=== PATIENT | male | born 1985 | race Caucasian/White ===

== ENCOUNTER 2020-11-06 07:42 | Outpatient (REF) | payer OTHER, SELFPAY ==
[2020-11-06 08:30] LABS: COVID-19 Test Negative (Negative)
== END 2020-11-06 07:43 | disposition home or self-care (01) ==
LOC: HO.LAB 07:42
PROVIDERS: Visit Provider Internal Medicine
DX: Z20.822 Contact with and (suspected) exposure to COVID-19 (principal)
CPT/HCPCS: 36415; 87635; C9803

== ENCOUNTER 2021-02-09 08:27 | Outpatient (REF) | payer OTHER, SELFPAY ==
[2021-02-09 10:53] LABS: Carbamazepine Tegretol 5.7 mcg/mL (5.0-12.0)
== END 2021-02-09 08:28 | disposition home or self-care (01) ==
LOC: HO.LAB 08:27
PROVIDERS: PCP Internal Medicine; Visit Provider General Practice
DX: F84.0 Autistic disorder (principal); Z79.899 Other long term (current) drug therapy
CPT/HCPCS: 36415; 80156

== ENCOUNTER 2022-08-16 08:01 | Outpatient (REF) | payer OTHER, SELFPAY ==
[2022-08-16 08:26] LABS: MANUAL DIFF FLAG NO
[2022-08-16 08:33] LABS: Basophils Percent Auto 0.3 % (0-2); Eosinophils Percent Auto 0.5 % (0-4); Hematocrit 44.4 % (42.0-52.0); Hemoglobin 14.7 g/dl (14.0-18.0); Imm Gran Abs Auto 0.02 X10*3/uL (0.00-0.03); Imm Gran Pct Auto 0.3 % (0.0-0.4); Lymphocytes Absolute Auto 1.7 X10*3/uL (1.2-4.9); Lymphocytes Percent Auto 23.5 % (20-40); Mean Corpuscular HGB Conc 33.1 g/dl (31.0-36.0); Mean Corpuscular Hemoglobin 27.9 pg (27.0-33.0); Mean Corpuscular Volume 84.3 fL (80.0-98.0); Mean Platelet Volume 9.2 fL (9.4-12.4); Monocytes Absolute Auto 0.3 X10*3/uL (0.1-1.2); Monocytes Percent Auto 4.6 % (2-11); Neutrophils Absolute Auto 5.3 x10*3/uL (2.0-8.3); Neutrophils Percent Auto 70.8 % (45-73); Platelet Count 323 X10*3/uL (160-400); Red Blood Count 5.27 X10*6/uL (4.60-5.80); Red Cell Distribution Width 12.5 % (11.0-16.0); White Blood Count 7.4 X10*3/uL (4.8-10.8)
[2022-08-16 09:06] LABS: Carbamazepine Tegretol 8.5 mcg/mL (5.0-12.0)
== END 2022-08-16 08:02 | disposition home or self-care (01) ==
LOC: HO.LAB 08:01
PROVIDERS: PCP Internal Medicine; Visit Provider General Practice
DX: Z79.899 Other long term (current) drug therapy (principal)
CPT/HCPCS: 36415; 80156; 85025

== ENCOUNTER 2022-09-01 16:01 | Outpatient (REF) | payer OTHER, SELFPAY ==
--- NOTE | ~2022-09-01 | XR_ITS ---
EXAMINATION: XR ABDOMEN COMPLETE CLINICAL INDICATION: Abdominal pain COMPARISON: Abdominal radiographs 10/13/2019 TECHNIQUE: AP view of the abdomen. FINDINGS: Bowel gas seen throughout nondilated loops of small bowel in the abdomen in addition to a small amount of gas in stool in the colon. Small amount of gas also seen in the rectum. No dilated air-filled bowel loops. No appreciable bowel wall thickening. No gross large volume free air on this supine exam. Visualized lung bases appear clear. Thoracolumbar posterior spinal fusion construct with biiliac fixation noted. 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 XR/XR abdomen min 2V IMPRESSION: 1. Nonobstructive bowel gas pattern. 2. No gross large volume free air detected on this supine exam.
[2022-09-01 16:20] LABS: MANUAL DIFF FLAG NO
[2022-09-01 17:34] LABS: Basophils Percent Auto 0.5 % (0-2); Eosinophils Absolute Auto 0.1 X10*3/uL (0.0-0.4); Eosinophils Percent Auto 1.3 % (0-4); Hematocrit 42.3 % (42.0-52.0); Hemoglobin 14.2 g/dl (14.0-18.0); Imm Gran Abs Auto 0.01 X10*3/uL (0.00-0.03); Imm Gran Pct Auto 0.2 % (0.0-0.4); Lymphocytes Absolute Auto 1.7 X10*3/uL (1.2-4.9); Lymphocytes Percent Auto 28.2 % (20-40); Mean Corpuscular HGB Conc 33.6 g/dl (31.0-36.0); Mean Corpuscular Hemoglobin 28.1 pg (27.0-33.0); Mean Corpuscular Volume 83.8 fL (80.0-98.0); Mean Platelet Volume 9.6 fL (9.4-12.4); Monocytes Absolute Auto 0.5 X10*3/uL (0.1-1.2); Monocytes Percent Auto 7.8 % (2-11); Neutrophils Absolute Auto 3.7 x10*3/uL (2.0-8.3); Platelet Count 332 X10*3/uL (160-400); Red Blood Count 5.05 X10*6/uL (4.60-5.80); Red Cell Distribution Width 12.6 % (11.0-16.0)
[2022-09-01 17:49] LABS: Carbamazepine Tegretol 6.7 mcg/mL (5.0-12.0)
[2022-09-01 17:54] LABS: Alanine Aminotransferase 25 U/L (0-40); Albumin Level 4.2 g/dL (3.5-5.0); Alkaline Phosphatase 53 U/L (39-117); Anion Gap 9 (12-20); Aspartate Amino Transferase 6 U/L (5-37); Bilirubin Total 0.3 mg/dL (0.0-1.0); Blood Urea Nitrogen 7 mg/dL (9-16); Calcium 9.2 mg/dL (8.4-10.2); Carbon Dioxide 30 mmol/L (22-29); Chloride 101 mmol/L (96-108); Cholesterol 134 mg/dL; Estimated Glomerular Filt Rate > 60; Glucose Random 94 mg/dL (60-115); Sodium 136 mmol/L (135-145); Total Protein 6.6 g/dL (6.5-8.0)
[2022-09-01 18:11] LABS: TSH reflex Free T4 0.62 uIU/mL (0.32-4.0); Vitamin D 25-OH Total 14.7 ng/mL (>30)
[2022-09-01 18:25] LABS: Erythrocyte Sedimentation Rate 2 MM/HR (0-15)
== END 2022-09-01 16:02 | disposition home or self-care (01) ==
LOC: HO.LAB 16:01
PROVIDERS: PCP Internal Medicine; Visit Provider Internal Medicine
DX: Z00.00 Encounter for general adult medical examination without abnormal findings (principal); R10.9 Unspecified abdominal pain; E55.9 Vitamin D deficiency, unspecified
CPT/HCPCS: 36415; 74019; 80053; 80156; 82306; 82465; 84443; 85025; 85652

== ENCOUNTER 2022-12-03 13:53 | Outpatient (REF) | payer OTHER, SELFPAY | END 2022-12-03 13:54 | disposition home or self-care (01) | LOC: HO.LNP 13:53 | PROVIDERS: PCP Internal Medicine; Referring Provider Internal Medicine; Visit Provider Surgery | DX: N49.2 Inflammatory disorders of scrotum (principal) | CPT/HCPCS: 10061; 55100; 87070; 87077; 87186; 87205; 99202 ==

== ENCOUNTER → 2022-12-05 13:30 | Outpatient (BNVA) | payer OTHER, SELFPAY | PROVIDERS: PCP Internal Medicine; Visit Provider Surgery | DX: Z48.00 Encounter for change or removal of nonsurgical wound dressing (principal); N49.2 Inflammatory disorders of scrotum | CPT/HCPCS: 99211 ==

== ENCOUNTER → 2022-12-09 10:59 | Outpatient (BNVA) | payer OTHER, SELFPAY | PROVIDERS: PCP Internal Medicine; Visit Provider Surgery | DX: Z09 Encounter for follow-up examination after completed treatment for conditions other than malignant neoplasm (principal); Z87.2 Personal history of diseases of the skin and subcutaneous tissue | CPT/HCPCS: 99212 ==

== ENCOUNTER 2023-02-17 08:50 | Outpatient (AMB) | payer OTHER, SELFPAY ==
--- NOTE | 2023-02-17 09:31 | MHC.OFFWIV ---
Intake Vital Signs 02/17/23 09:35 BP not taken reason Medical Reason Pulse 94 Pulse Source Pulse Oximeter Temp 97.3 F Temp Source Temporal Artery Scan Pulse Oximetry (%) 100 Oxygen Delivery Method Room Air Intake Visit Reasons: EST/2 cyst on leg/[id number] Intake Note: Pt is here c/o having 2 golf ball size cyst on his but. Patient Tobacco Use Status: Never used Tobacco Allergies No Known Allergies [No Known Allergies*] Allergy (Verified 02/17/23 09:31) Do you need a note to return to daycare/school/sports/work: No HPI HPI Comments History of Present Illness Details Parents present with 37-year-old son, has cerebral palsy and severe academic impairment and his wheel chair bound, nonverbal, presents for cyst on his coccyx, and on his leg. [facility] Medical History Allergic rhinitis Bipolar disorder Constipation Gallstones without obstruction of gallbladder Schizophrenia Spastic quadriplegic cerebral palsy Spina bifida Surgical History No pertinent past surgical history Family History Father High blood pressure Mother No problems noted. Social History Housing: House Alcohol intake: never Patient Tobacco Use Status: Never used Tobacco Second Hand Smoke Exposure: No service: No Current occupational status: disabled Review of Systems Const Details: Constitutional: No Fever, No Chills Skin: Cyst on coccyx and legs No Skin lacerations, No rash All systems reviewed & are unremarkable except as noted in HPI and below Physical Exam Vital Signs: Last Vital Signs Temp 97.3 F 02/17/23 09:35 Pulse 94 02/17/23 09:35 Pulse Ox 100 02/17/23 09:35 Oxygen Delivery Method Room Air 02/17/23 09:35 Appearance: Alert. No acute distress. Eyes: Pupils equal, round and reactive to light. ENT: Pharynx normal. Neck: Normal inspection. Neck supple. CVS: Normal heart rate and rhythm. Pulses normal. Respiratory: No respiratory distress. Breath sounds normal. Abdomen: Soft and nontender. Skin: Skin warm and dry. Normal skin color. Normal skin turgor. Extremities: Contractured. Brisk capillary refill. Neuro: No motor deficit. No sensory deficit. Unable to assess cranial nerves, cerebral palsy with severe academic impairment Assessment & Plan Assessment & Plan (1) Cyst near coccyx: Code(s): L05.91 - Pilonidal cyst without abscess Plan Parents present with 37-year-old son, wheelchair-bound, cerebral palsy with severe academic impairment in nonverbal. Patient is unable to make his needs known. He does have a history of scrotal cyst and was evaluated on 12/09/2022 by this facility then referred to surgeon Dr. Cowan. Patient's parents state that he has an abscess or cyst like spot on his coccyx and on his leg. Considering the difficulty and inaccessibility of the exam table, we are unable to assess this cyst. Call out to Dr. Rock rojo office, plan is for patient to follow up in the surgeon's office at 01:30 today. Parents verbalized understanding of discharge instructions. Verbalized understandings of signs and symptoms indicating need for emergent intervention. Patient Instructions: Your son was evaluated for multiple cysts. Please follow-up with the surgeon, Dr. Cowan at 13:30 today. Thank you for choosing this urgent care for evaluation. Please follow-up with primary care physician as needed. Return to the emergency department for any new, concerning, or worsening symptoms. Coding Level of Care Code Est Pt Level 3 (64653) Diagnoses Cyst near coccyx L05.91
[2023-02-17 09:35] VITALS: PULSE 94; TEMP 36.3; O2SAT 100
== END 2023-02-17 11:36 | disposition home or self-care (01) ==
PROVIDERS: PCP Internal Medicine; Visit Provider Nurse Practitioner Family
DX: L05.91 Pilonidal cyst without abscess (principal)
CPT/HCPCS: 99213

== ENCOUNTER 2023-02-17 13:17 | Outpatient (REF) | payer OTHER, SELFPAY | END 2023-02-17 13:18 | disposition home or self-care (01) | LOC: HO.LAB 13:17 | PROVIDERS: PCP Internal Medicine; Visit Provider Surgery | DX: L02.91 Cutaneous abscess, unspecified (principal); L05.91 Pilonidal cyst without abscess; Z79.899 Other long term (current) drug therapy | CPT/HCPCS: 10061; 87070; 87077; 87186; 87205; 99212 ==

== ENCOUNTER 2023-02-17 13:17 | Outpatient (AMB) | payer OTHER, SELFPAY ==
[2023-02-17 13:23] VITALS: BP 120/80
--- NOTE | 2023-02-17 13:23 | A.OFFVIS_ITS ---
Intake Vital Signs 02/17/23 13:23 Weight 126 lb BP 120/80 Blood Pressure Location Lt brachial Position Sitting Intake Visit Reasons: possible exc of abscess of back & leg Intake Note: Patient here with parents. Mom reports 2 new cysts. Lt buttock is bigger. Gets irritated with diaper and bled this morning. Threre is one cyst on Lt post thigh. Both cysts recently noticed by parents. 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 Accompanied by: mother and father Allergies No Known Allergies [No Known Allergies*] Allergy (Verified 02/17/23 13:25) Medication List - Last Reconciled 02/17/23 by Cortez Cowan MD [ADULT DIAPERS (XL) As directed] carbamazepine 200 mg PO BID [DISPOSABLE VINYL GLOVES (medium) As directed] ibuprofen 800 mg PO BID PRN 30 days miscellaneous medical supply Adult Diapers- size: X-Large polyethylene glycol 3350 17 grams PO DAILY 90 days quetiapine 25 mg PO BEDTIME [UNDERPADS As directed] ziprasidone HCl 80 mg PO BID HPI HPI Comments History of Present Illness Details Patient whom I know from the past who presents here with his parents with a left mid buttock and left proximal thigh abscesses. These have progressed over several days time. Patient well known to me. Unfortunate handicapped male Chart was reviewed and patient evaluated [facility] Medical History Allergic rhinitis Bipolar disorder Constipation Gallstones without obstruction of gallbladder Schizophrenia Spastic quadriplegic cerebral palsy Spina bifida Surgical History No pertinent past surgical history Family History Father High blood pressure Mother No problems noted. Social History Housing: House Alcohol intake: never Patient Tobacco Use Status: Never used Tobacco Second Hand Smoke Exposure: No service: No Current occupational status: disabled Physical Exam Vital Signs: Last Vital Signs BP 120/80 02/17/23 13:23 Extrem Other: Approximately 4 x 4 cm left mid buttock and approximately 2 x 2 cm left proximal thigh abscesses. Office Procedures I&D Drain Details: Risks, benefits, alternatives of incision and drainage of buttock and upper posterior thigh abscess respectively were reviewed with the patient's parents and included but not limited to bleeding recurrence numbness, pain scarring and wished to proceed. After appropriate positioning, patient underwent 1% lidocaine and Betadine prep and uneventful incision and drainage of each abscess. Cultures were obtained from the larger buttock abscess. This measured 4 x 4 cm. Proximal posterior thigh abscess measured approximately 2 x 2 cm. Purulent material was retrieved from each abscess.. Each wound was irrigated, secured hemostasis, packed, and sterile dressings applied.. Patient tolerated procedure well. 33496-Phhzocym of Skin Abscess, complex All charges added?: Procedure code (CPT) selection complete Assessment & Plan Assessment & Plan (1) Abscess: Code(s): L02.91 - Cutaneous abscess, unspecified Orders: Orders AMB Incision & Drainage Today L02.91 - Cutaneous abscess, unspecified Medications: New sulfamethoxazole-trimethoprim 400-80 mg (Bactrim) 1 tab PO BID 14 tabs 0RF hydrocodone-acetaminophen 5-325 mg Partial Fill upon patient request. 1 tab PO Q4-6H PRN 30 tabs 0RF pain Coding Level of Care Code Est Pt Level 4 (17033) Diagnoses Abscess L02.91 CPT Codes I&D Drain - Drain 2: [id number]-[id number] of Skin Abscess, complex ([id number])
== END 2023-02-17 14:04 | disposition home or self-care (01) ==
PROVIDERS: PCP Internal Medicine; Visit Provider Surgery
DX: L02.91 Cutaneous abscess, unspecified (principal)
CPT/HCPCS: 10061; 99214

== ENCOUNTER → 2023-02-18 13:34 | Outpatient (BNVA) | payer OTHER, SELFPAY | PROVIDERS: PCP Internal Medicine; Visit Provider Surgery | DX: Z48.1 Encounter for planned postprocedural wound closure (principal); Z87.2 Personal history of diseases of the skin and subcutaneous tissue | CPT/HCPCS: 99211 ==

== ENCOUNTER 2023-03-02 07:34 | Outpatient (REF) | payer OTHER, SELFPAY | END 2023-03-02 07:35 | disposition home or self-care (01) | LOC: HO.LAB 07:34 | PROVIDERS: PCP Internal Medicine; Visit Provider Internal Medicine | DX: Z13.89 Encounter for screening for other disorder (principal) ==

== ENCOUNTER 2023-03-04 08:44 | Outpatient (AMB) | payer OTHER, SELFPAY ==
[2023-03-04 09:17] VITALS: BP 120/78; PULSE 67; O2SAT 99
--- NOTE | 2023-03-04 09:17 | A.OFFPC_ITS ---
Vital Signs 03/04/23 09:17 Weight 126 lb BP 120/78 Blood Pressure Location Lt brachial Position Sitting Pulse 67 Pulse Source Pulse Oximeter Pulse Oximetry (%) 99 Oxygen Delivery Method Room Air Intake Visit Reasons: Follow up Hoop Rolls Operator Required: No Accompanied by: Self / Same As Patient Allergies No Known Allergies [No Known Allergies*] Allergy (Verified 03/04/23 10:13) Medication List - Last Reconciled 03/04/23 by Scot Mosley MD [ADULT DIAPERS (XL) As directed] carbamazepine 200 mg PO BID [DISPOSABLE VINYL GLOVES (medium) As directed] hydrocodone-acetaminophen 5-325 mg 1 tab PO Q4-6H PRN ibuprofen 800 mg PO BID PRN 30 days miscellaneous medical supply Adult Diapers- size: X-Large polyethylene glycol 3350 17 grams PO DAILY 90 days quetiapine 25 mg PO BEDTIME sulfamethoxazole-trimethoprim 400-80 mg (Bactrim) 1 tab PO BID 7 days [UNDERPADS As directed] ziprasidone HCl 80 mg PO BID Tobacco use date assessed: 03/04/23 Dental Screening Dental Screen Date: 03/04/23 Did you have a dental visit in the last 12 months?: Yes Did you have a dental problem in the last 6 months where you did not have access to dental care?: No Was dental information given to patient?: Patient has dentist HPI Follow up HPI Details Patient is brought in today for his follow up visit Was seen by surgery a couple of weeks ago and had I & D done on the 2 skin abscess that he had on his left buttock area and left thigh posteriorly He was sent home with Rx for oral Bactrim DS BID x 7 days, which his father states that he finished last week Patient was reportedly being seen by [facility] for wound care and dressing change but his father states that the visiting nurses came by about 3 times and stopped coming over a week ago and his daughter (patient's sister) is the one now cleaning and dressing his wounds - his father does not know what his daughter is using to dress patient's wounds and will have her call us back with the information as soon as possible Patient's father states that patient's wounds (where the abscess were and I & D was done) are still open and have not yet healed/closed up completely States that there is still some minimal drainage from the wounds and has noticed that the drainage sometimes smell bad Wound C & S done (when patient had I & D) came out positive for MRSA that was sensitive to Bactrim Family states that patient has not had any fever or any other acute issues and is doing well overall [facility] Medical History Allergic rhinitis Bipolar disorder Constipation Gallstones without obstruction of gallbladder Schizophrenia Spastic quadriplegic cerebral palsy Spina bifida Surgical History No pertinent past surgical history Family History Father High blood pressure Mother No problems noted. Social History Housing: House Alcohol intake: never Patient Tobacco Use Status: Never used Tobacco Second Hand Smoke Exposure: No service: No Current occupational status: disabled Questionnaire PHQ-9 Over the last 2 weeks, how often have you been bothered by any of the following problems? 1. Little interest or pleasure in doing things: not at all 2. Feeling down, depressed, or hopeless: not at all 3. Trouble falling or staying asleep, or sleeping too much: not at all 4. Feeling tired or having little energy: not at all 5. Poor appetite or overeating: not at all 6. Feeling bad about yourself - or that you are a failure or have let yourself or your family down: not at all 7. Trouble concentrating on things, such as reading the newspaper or watching television: not at all 8. Moving or speaking so slowly that other people could have noticed. Or the opposite - being so fidgety or restless that you have been moving around a lot more than usual: not at all 9. Thoughts that you would be better off or of hurting yourself in some way: not at all Total score: 0 Depression Screening Interpretation: Negative 18562 - PHQ-9 Billing: Yes Source: Developed by Drs. Bienvenido Donald, Paris Figueredo, Mauro Valera and colleagues, with an educational pedro luis from [employer]. Thrive Questionnaire Date Thrive assessed: 03/04/23 I am a: Parent/Caregiver What is your living situation today?: I have a steady place to live Within the past 12 months, did the food you bought not last and you didn't have the money to get more?: Never true Within the past 12 months, did you worry whether your food would run out before you got money to buy more?: Never true Do you have trouble paying for medicines?: No Do you have trouble getting transportation to medical appointments?: No Do you have trouble paying your heating and electricity bill?: No Do you have trouble taking care of your child, family member or friend?: No Do you have trouble with day-to-day activities such as bathing, preparing meals, shopping, managing finances, etc.?: No Are you currently unemployed and looking for a job?: No Are you interested in more education?: No Please select the resources that you would like help with: None Currently or been in a relationship where the following occur: no concerns reported AUDIT C Alcohol Use Questionnaire (AUDIT-C) 1. How often do you have a drink containing alcohol?: Never 3. How often do you have six or more drinks on one occasion?: Never Total Score: 0 Score Reviewed/Action Taken: Yes JALEESA-7 AMB Questionnaire JALEESA-7 Date JALEESA - 7 assessed: 03/04/23 Feeling nervous, anxious, or on edge: 0 = Not at all Not being able to stop or control worryin = Not at all Worrying too much about different things: 0 = Not at all Trouble relaxin = Not at all Being so restless that it is hard to sit still: 0 = Not at all Becoming easily annoyed or irritable: 0 = Not at all Feeling afraid as if something awful might happen: 0 = Not at all Total JALEESA-7 score (0-4 normal; 5-9 mild; 10-14 moderate; 15-21 severe): 0 Source: Developed by Drs. Bienvenido Donald, Paris Figueredo, Mauro Valera and colleagues, with an educational pedro luis from [employer]. Review of Systems Const Details: ROS is limited and obtained primarily from patient's family as patient is not able to verbalize or communicate appropriately due to his physical incapacities Denies chills, Denies fever(s) and Denies headache(s) ENT Denies dysphagia, Denies headache(s) and Denies nasal congestion Card Denies rapid heart rate, Denies irregular heart rhythm, Denies palpitations and Denies dyspnea Resp Denies chest congestion, Denies cough and Denies dyspnea GI Denies abdominal pain, Denies dysphagia, Denies diarrhea, Denies nausea and Denies vomiting Musc Denies arthralgias and Denies joint swelling Skin/Breast Details: (+) open wounds on the left buttock and over the posterior left thigh proximally Denies rash and Denies unusual bruising Neuro Denies headache(s) Endo Denies palpitations Physical exam (Primary Care) Vital Signs: Last Vital Signs Pulse 67 03/04/23 09:17 BP 120/78 03/04/23 09:17 Pulse Ox 99 03/04/23 09:17 Oxygen Delivery Method Room Air 03/04/23 09:17 Tobacco/Smoking Status: Tobacco use Status Tobacco use date assessed 03/04/23 03/04/23 09:24 Patient Tobacco Use Status Never used Tobacco 03/04/23 09:24 PHQ-9: PHQ-9 Score PHQ-9: Total score 0 03/04/23 09:24 Depression Screening Interpretation: Negative Thrive Assessment: Date of Thrive Assessment Date Thrive assessed 03/04/23 03/04/23 09:24 Currently or been in a relationship where the following occur: no concerns reported Const Other: Physical exam is limited due to patient's wheelchair-bound status, physical disabilities and inability to cooperate with exam General: no acute distress and alert Limitations: wheelchair Neck Neck: Yes no lymphadenopathy and Yes supple Resp Auscultation: clear to auscultation bilaterally Cardio Rate: regular rate Rhythm: regular rhythm Heart sounds: no murmurs GI Palpation (GI): Soft to palpation and no guarding Skin Other: (+) 2 open wounds - on the left buttock and over the posterior left thigh proximally; (+) minimal serosanguinous drainage noted Neuro Other: (+) spastic paraplegia; unable to perform neuro exam due to patient's condition but he does respond in a limited way to external stimuli Speech: Global aphasia present Extrem Other: extremities are all contracted and atrophic due to his spastic cerebral palsy and quadriplegia General: Yes no pedal edema Psych Other: unable to assess Assessment and Plan Assessment & Plan (1) Cutaneous abscess: Code(s): L02.91 - Cutaneous abscess, unspecified Plan: Still has 2 residual open wounds over the left buttock area and over the posterior aspect of the proximal left thigh S/P I & D by surgery about 2 to 3 weeks ago and S/P Tx with 7 days of oral Bactrim DS Wound C/S grew (+) MRSA sensitive to Bactrim Will start patient back for now on oral Bactrim DS BID x 7 more days Have instructed patient's family to continue with daily wound care and dressing changes for now and to call if patient's wounds still do not heal and close up completely over the next 2 to 3 weeks Plan To return as scheduled in August 2023 for his annual physical examination Medications: Changed From sulfamethoxazole-trimethoprim 400-80 mg (Bactrim) 1 tab PO BID 14 tabs 0RF To sulfamethoxazole-trimethoprim 400-80 mg (Bactrim) go back on antibiotics (Bactrim DS) x 7 MORE DAYS 1 tab PO BID 7 days 14 tabs 0RF Coding Level of Care Code Est Pt Level 3 (98672) Diagnoses Cutaneous abscess L02.91
== END 2023-03-04 10:04 | disposition home or self-care (01) ==
PROVIDERS: PCP Internal Medicine; Visit Provider Internal Medicine
DX: L02.91 Cutaneous abscess, unspecified (principal)
CPT/HCPCS: 99213

== ENCOUNTER 2023-03-06 13:49 | Outpatient (REF) | payer OTHER, SELFPAY ==
[2023-03-06 13:34] LABS: Appearance Urine Clear; Color Urine Yellow; Glucose Urine UA Negative (Negative); Leukocyte Esterase Urine Negative (Negative); Nitrite Urine Negative (Negative); PH 6.5 (5.0-9.0); Urine Blood Negative (Negative); Urine Ketones Negative (Negative); Urine Protein Negative (Neg-Trace)
[2023-03-06 13:36] LABS: Bacteria Urine None Seen (None Seen); Hyaline Casts Urine 0-2 /LPF (0-2); RBC Urine 0-2 /HPF (0-2); Squamous Epithelial Cell Urine 0-2 /HPF (0-2); WBC Urine 0-5 /HPF (0-5)
== END 2023-03-06 13:50 | disposition home or self-care (01) ==
LOC: HO.LNP 13:49
PROVIDERS: Visit Provider Internal Medicine
DX: R30.0 Dysuria (principal)
CPT/HCPCS: 81001

== ENCOUNTER 2023-04-27 10:00 | Outpatient (AMB) | payer OTHER, SELFPAY ==
--- NOTE | 2023-04-27 10:41 | MHC.OFFWIV ---
Intake Vital Signs 04/27/23 10:55 BMI Reason not done Patient refused/unable Intake Visit Reasons: EP, abscess in right testicle [phone] Intake Note: pt is here for c/o abscess in right testicle Patient Tobacco Use Status: Never used Tobacco Allergies No Known Allergies [No Known Allergies*] Allergy (Verified 04/27/23 10:42) Do you need a note to return to daycare/school/sports/work: Yes HPI HPI Comments History of Present Illness Details 37-year-old male history of intellectually disabled, nonverbal, spastic quadriplegic cerebral palsy, spina bifida, schizophrenia, bipolar disorder presents with mother and father were concerned that he may have a abscess/rash to his genital region ( r testicle) X 4 days. They report that it appears like he has small little pimples in his genital region. Reports patient has a history of scrotal abscesses, followed by general surgery for I&D. Denies fevers and chills. Eating and drinking well. No other complaints per parents. Unable to obtain history and review of systems from patient as he is nonverbal. On exam Normal external genitalia, no tenderness with palpation of external genitalia. There are noted to be a small pustule overlying the r testicle ( inferior aspect) , nontender. Minimal erythema surrounding. Upon chart review it appears as though patient has been seen by General surgery for this, similar presentation. Concerns for tiny abscesses measuring less than a cm or possibly folliculitis which is more likely. No signs of necrotizing infection, fourniers gangrene Plan-antibiotic. Educated patient on diagnosis and treatment plan, answered all question, patient verbalizes understanding. At this time patient will be discharged home, advised to return with new or worsening symptoms. Educated on worrisome signs and symptoms and when to return. At this time I feel comfortable discharge home. Patient should follow-up with General surgery for recurrent abscesses COUNT INCLUDES [facility] Medical History Allergic rhinitis Bipolar disorder Constipation Gallstones without obstruction of gallbladder Schizophrenia Spastic quadriplegic cerebral palsy Spina bifida Surgical History No pertinent past surgical history Family History Father High blood pressure Mother No problems noted. Social History Housing: House Alcohol intake: never Patient Tobacco Use Status: Never used Tobacco Second Hand Smoke Exposure: No service: No Current occupational status: disabled Review of Systems Const Details: Constitutional : No Weight loss, No Fever, No Chills, No Fatigue, No Malaise ENT/Mouth : No sore throat, No Rhinorrhea Eyes: No Eye Pain, No Swelling, No Redness Cardiovascular : No Chest Pain, No SOB, No Dyspnea on Exertion, No Orthopnea, No Edema, No Palpitations Respiratory : No Cough, No Sputum, No Wheezing Gastrointestinal : No Nausea, No Vomiting, No Diarrhea, No Constipation, No abdominal Pain, No Hematochezia, No Melena Genitourinary : No Dysuria, No Urinary Frequency, No Hematuria, Musculoskeletal : No joint pain, No Myalgias, No Joint Swelling Skin : No Skin Lesions, + rash Neuro : No Weakness, No Numbness, No Dizziness, No Headache Psych : No Anxiety/Panic, No Depression All systems reviewed & are unremarkable except as noted in HPI and below Physical Exam Vital Signs: vss Appearance: Alert.? Oriented X3.? No acute distress.? Head: Normocephalic, atraumatic, no step-offs or deformities Eyes: Pupils equal, round and reactive to light.? ENT: Pharynx normal.? Neck: Normal inspection.? Neck supple.? CVS: Normal heart rate and rhythm.? Pulses normal.? Respiratory: No respiratory distress.? Breath sounds normal.? Abdomen: Soft and nontender.? Skin: Skin warm and dry.? Normal skin color.? Normal skin turgor.? Extremities: No lower extremity edema.? No calf ttp. 5/5 strength to bilateral upper and lower extremities Back: No midline tenderness, no C-spine tenderness, full range of motion, no CVA tenderness bilaterally Neuro: Oriented X 3.? No motor deficit.? No sensory deficit. CN 2-12 intact Sensitive exam: Sensitive exam: mother and father at bedside. Normal external genitalia, no tenderness with palpation of external genitalia. There are noted to be small pustules overlying the mons pubis, and the penile shaft, nontender. Minimal erythema surrounding. Assessment & Plan Assessment & Plan (1) Folliculitis: Code(s): L73.9 - Follicular disorder, unspecified Plan Take your medications as prescribed. If you were prescribed antibiotics today, it is important that you take your medication to their entirety, do not skip any doses, do not finish them early. Follow-up with your primary care provider this week. Return to the emergency department with new or worsening symptoms. Such as fevers, chills, chest pain, shortness of breath, nausea, vomiting, dizziness, headache, vision changes, lethargy In case of emergency call 911 Medications: New doxycycline hyclate 100 mg PO BID 14 caps 0RF 7 days Coding Level of Care Code Est Pt Level 3 (98982) Diagnoses Folliculitis L73.9
[2023-04-27 10:55] VITALS: BP 120/76; PULSE 75; TEMP 36.4; O2SAT 97
== END 2023-04-27 11:38 | disposition home or self-care (01) ==
PROVIDERS: PCP Internal Medicine; Visit Provider Physician Assistant
DX: L73.9 Follicular disorder, unspecified (principal)
CPT/HCPCS: 99213

== ENCOUNTER 2023-04-27 15:09 | Outpatient (AMB) | payer OTHER, SELFPAY ==
--- NOTE | 2023-04-27 14:51 | A.OFFVIS_ITS ---
Intake Intake Visit Reasons: Right Testicular Abscess Allergies No Known Allergies [No Known Allergies*] Allergy (Verified 04/27/23 10:42) HPI HPI Comments History of Present Illness Details Patient presents with her significant other for evaluation and follow- up of left dorsal left foot I and D/evacuation of hematoma approximately 2 weeks ago in hospital. All things considered, patient is doing well. She has minimal incisional discomfort but still needs pain medicine. She is undergoing daily VNA services. [facility] Medical History Allergic rhinitis Bipolar disorder Constipation Gallstones without obstruction of gallbladder Schizophrenia Spastic quadriplegic cerebral palsy Spina bifida Surgical History No pertinent past surgical history Family History Father High blood pressure Mother No problems noted. Social History Housing: House Alcohol intake: never Patient Tobacco Use Status: Never used Tobacco Second Hand Smoke Exposure: No service: No Current occupational status: disabled Physical Exam Extrem Other: Dorsal left foot wound has markedly decreased in size since hospitalization. Is granulating well. Complete resolution of the infective process. Some brock quamating skin around the dorsum of the foot otherwise healing as expected Assessment & Plan Assessment & Plan (1) Cutaneous abscess: Code(s): L02.91 - Cutaneous abscess, unspecified Plan Patient wishes to continue q.day dressing and packing changes although q.o.d. would be acceptable. She was seen in approximately 1-1/2 weeks time. She has been instructed to take dressing and packing off 1/2 hour prior to visiting nurse arriving and to shower and let water get into the wound and dry this and let the nurse then to the topical dressing. Also encouraged to elevate left foot is much as possible. Patient would like a renewal of analgesics which will be done. Coding Level of Care Code Global (20359) Diagnoses Cutaneous abscess L02.91
--- NOTE | 2023-04-27 14:54 | MHC.OFFVIS ---
Intake Vital Signs 04/27/23 15:19 Weight 126 lb BP 137/91 H Blood Pressure Location Rt brachial Position Sitting Pulse 67 Intake Visit Reasons: Right Testicular Abscess Intake Note: Patient referred for new abscess on Rt testicle. Noticed pus X4days. Was prescribed Doxycycline course. Frame Straightener Required: No Accompanied by: Father Allergies No Known Allergies [No Known Allergies*] Allergy (Verified 04/27/23 15:20) Medication List - Last Reviewed 04/27/23 by THI Modi [ADULT DIAPERS (XL) As directed] carbamazepine 200 mg PO BID [DISPOSABLE VINYL GLOVES (medium) As directed] doxycycline hyclate 100 mg PO BID 7 days hydrocodone-acetaminophen 5-325 mg 1 tab PO Q4-6H PRN ibuprofen 800 mg PO BID PRN 30 days miscellaneous medical supply Adult Diapers- size: X-Large polyethylene glycol 3350 17 grams PO DAILY 90 days quetiapine 25 mg PO BEDTIME [UNDERPADS As directed] ziprasidone HCl 80 mg PO BID HPI HPI Comments History of Present Illness Details Patient is a very advanced mentally handicapped in man who presents here with his father. He is evaluated today because of a carbuncle involving the right scrotum. Patient was seen at a walk-in center today and presents here for further evaluation. Patient is well known to me. Chart was reviewed patient evaluated [facility] Medical History Spina bifida Schizophrenia Bipolar disorder Constipation Gallstones without obstruction of gallbladder Allergic rhinitis Spastic quadriplegic cerebral palsy Surgical History No pertinent past surgical history Family History Father High blood pressure Mother No problems noted. Social History Housing: House Alcohol intake: never Patient Tobacco Use Status: Never used Tobacco Second Hand Smoke Exposure: No service: No Current occupational status: disabled Physical Exam Vital Signs: Last Vital Signs Pulse 67 04/27/23 15:19 BP 137/91 H 04/27/23 15:19 Other: Patient had a large carbuncle bobbing the right distal scrotum. This was squeezed and completely evacuated. Patient tolerated procedure well. Dressing was applied. Assessment & Plan Assessment & Plan (1) Cutaneous abscess: Code(s): L02.91 - Cutaneous abscess, unspecified Plan: Patient's father who was 1 of his caretakers has been given local instructions, to continue antibiotics prescribed by the walk-in center, and they will follow-up with me p.r.n.. Coding Level of Care Code Est Pt Level 4 (88363) Diagnoses Cutaneous abscess L02.91
[2023-04-27 15:19] VITALS: BP 137/91; PULSE 67
== END 2023-04-27 15:26 | disposition home or self-care (01) ==
PROVIDERS: PCP Internal Medicine; Visit Provider Surgery
DX: L02.91 Cutaneous abscess, unspecified (principal); Z48.89 Encounter for other specified surgical aftercare
CPT/HCPCS: 99024

== ENCOUNTER → 2023-04-27 15:09 | Outpatient (BNVA) | payer OTHER, SELFPAY | PROVIDERS: PCP Internal Medicine; Visit Provider Surgery | DX: L02.91 Cutaneous abscess, unspecified (principal) ==

== ENCOUNTER 2023-07-22 10:10 | Outpatient (AMB) | payer OTHER, SELFPAY ==
[2023-07-22 11:14] VITALS: BP 120/76; PULSE 97; TEMP 36.8; O2SAT 98
--- NOTE | 2023-07-22 11:14 | AM.OFFWIN_ITS ---
Intake Vital Signs 07/22/23 11:14 Weight 126 lb BP 120/76 Blood Pressure Location Lt brachial Position Sitting Pulse 97 Pulse Source Pulse Oximeter Temp 98.2 F Pulse Oximetry (%) 98 Oxygen Delivery Method Room Air Intake Visit Reasons: EP bed sore lft buttocks. In [facility]. Intake Note: pt is here today for bed sore lft buttocks 1 week ago Patient Tobacco Use Status: Never used Tobacco Allergies No Known Allergies [No Known Allergies*] Allergy (Verified 07/22/23 11:17) Do you need a note to return to daycare/school/sports/work: No HPI EP bed sore lft buttocks. In [facility]. HPI Details This is a 38 year-old male with a history of intellectually disability/nonverbal, spastic quadriplegic cerebral palsy, spina bifida, schizophrenia, bipolar disorder who presents with his father for concern of an abscess on his left buttock. This was noticed about 1 week ago. Patient's mother and sister are in attendance at visit via phone. Patient has history of cu taneous and scrotal abscesses and has been followed by [facility] general surgery for I&D in the past. Per family, no fevers, and patient has been eating and drinking well. No other complaints per parents. Unable to obtain history and review of systems from patient as he is nonverbal. [facility] Medical History Spina bifida Schizophrenia Bipolar disorder Constipation Gallstones without obstruction of gallbladder Allergic rhinitis Spastic quadriplegic cerebral palsy Surgical History No pertinent past surgical history Family History Father High blood pressure Mother No problems noted. Social History Housing: House Alcohol intake: never Patient Tobacco Use Status: Never used Tobacco Second Hand Smoke Exposure: No service: No Current occupational status: disabled Review of Systems Const All systems reviewed & are unremarkable except as noted in HPI and below Physical Exam Vital Signs: Last Vital Signs Temp 98.2 F 07/22/23 11:14 Pulse 97 07/22/23 11:14 BP 120/76 07/22/23 11:14 Pulse Ox 98 07/22/23 11:14 Oxygen Delivery Method Room Air 07/22/23 11:14 Const General: no acute distress Limitations: altered mental status, behavioral limitations, physical limitations, wheelchair and other limitations (nonverbal) Resp Effort & Inspection: normal respiratory effort and able to speak in complete sentences Auscultation: clear to auscultation bilaterally Cardio Palpation: normal PMI Rate: regular rate Rhythm: regular rhythm Skin Other: approx 0.5cm in diameter open area on left buttock, draining a small amount of serosanguineous discharge. Indurated area surrounding abscess approx 1.5cm circumferentially. No fluctuance. No excessive warmth or redness. Assessment & Plan Assessment & Plan (1) Cutaneous abscess: Code(s): L02.91 - Cutaneous abscess, unspecified Qualifiers: Site of cutaneous abscess: buttock Qualified Code(s): L02.31 - Cutaneous abscess of buttock Plan: I cleansed this area with NS and applied a small amount of bacitracin and covered with non-adherent dressing. Patient's family reports that the last time he was on Doxycycline this worked well. I will prescribe Doxy and we discussed at length the importance of monitoring this site and keeping area clean and dry as much as possible (patient incontinent and wears adult diapers). We reviewed indications to return to care or seek evaluation by gen surgery, who patient has seen several times previously for similar issues - these include: increasing size, redness, pain, or drainage from area, fevers, chills, malaise. They verbalize understanding and agree to plan. I sent them home with some dressing supplies. Medications: Refilled doxycycline hyclate 100 mg PO BID 7 days 14 caps 0RF Coding Level of Care Code Est Pt Level 3 (38388) Diagnoses Cutaneous abscess of buttock L02.31 Site of cutaneous abscess: buttock
== END 2023-07-22 12:14 | disposition home or self-care (01) ==
PROVIDERS: PCP Internal Medicine; Visit Provider Nurse Practitioner Family
DX: L02.31 Cutaneous abscess of buttock (principal)
CPT/HCPCS: 99213

== ENCOUNTER 2023-08-22 09:13 | Outpatient (AMB) | payer OTHER, SELFPAY ==
--- NOTE | 2023-08-22 09:19 | MHC.OFFWIV ---
Intake Vital Signs 08/22/23 09:20 BMI Reason not done Patient refused/unable BP 122/78 Blood Pressure Location Lt brachial Position Sitting Pulse 87 Pulse Source Pulse Oximeter Temp 96.9 F Temp Source Core Pulse Oximetry (%) 98 Oxygen Delivery Method Room Air Intake Visit Reasons: EP 1 week of no eating/throat pain Intake Note: Patient is here with 1 week of no eating and throat pain Patient Tobacco Use Status: Never used Tobacco Allergies No Known Allergies [No Known Allergies*] Allergy (Verified 08/22/23 09:35) Medication List - Last Reconciled 08/22/23 by Claudia Hagen CNP [ADULT DIAPERS (XL) As directed] carbamazepine 200 mg PO BID [DISPOSABLE VINYL GLOVES (large) As directed] [DISPOSABLE WIPES As directed] doxycycline hyclate 100 mg PO BID 7 days hydrocodone-acetaminophen 5-325 mg 1 tab PO Q4-6H PRN ibuprofen 800 mg PO BID PRN 30 days miscellaneous medical supply Adult Diapers- size: X-Large polyethylene glycol 3350 17 grams PO DAILY 90 days quetiapine 25 mg PO BEDTIME [UNDERPADS As directed] ziprasidone HCl 80 mg PO BID Do you need a note to return to daycare/school/sports/work: No HPI HPI Comments History of Present Illness Details This is a 38 year-old male with a history of intellectually disability/nonverbal, spastic quadriplegic cerebral palsy, spina bifida, schizophrenia, bipolar disorder who presents with his father for concern of sore throat contributing to poor appetite x 1 week. He lives at home but goes to a day program, has been exposed to sick contacts, tested negative for covid with home test. Father denies recent fever, chills, nausea, vomiting, diarrhea, changes in bowels or bladder. [facility] Medical History Spina bifida Schizophrenia Bipolar disorder Constipation Gallstones without obstruction of gallbladder Allergic rhinitis Spastic quadriplegic cerebral palsy Surgical History No pertinent past surgical history Family History Father High blood pressure Mother No problems noted. Social History Housing: House Alcohol intake: never Patient Tobacco Use Status: Never used Tobacco Second Hand Smoke Exposure: No service: No Current occupational status: disabled Review of Systems Const All systems reviewed & are unremarkable except as noted in HPI and below Physical Exam Vital Signs: Last Vital Signs Temp 96.9 F 08/22/23 09:20 Pulse 87 08/22/23 09:20 BP 122/78 08/22/23 09:20 Pulse Ox 98 08/22/23 09:20 Oxygen Delivery Method Room Air 08/22/23 09:20 Const General: comfortable, no acute distress and other (non verbal) Nutritional Appearance: well nourished Limitations: altered mental status, behavioral limitations and wheelchair HEENT Head: Yes normal to inspection, Yes normocephalic and Yes atraumatic Ears: TM's normal bilaterally General nose exam: Normal nasal mucous membranes and turbinates present Face and sinus: Yes sinuses nontender Mouth: moist mucous membranes Throat: Yes posterior oropharynx abnormal (erythematous, non displaced uvula) Eyes General: appearance normal, both eyes and all related structures Neck Neck: Yes normal visual inspection, Yes no meningeal signs and Yes trachea midline Lymphatic: lymphadenopathy bilateral anterior cervical single, small and soft Chest Chest palpation & inspection: normal inspection of the chest Resp Effort & Inspection: normal respiratory effort, no cough, no respiratory distress and not tachypneic Auscultation: clear to auscultation bilaterally, no rhonchi and no wheezes Cardio Rate: regular rate Rhythm: regular rhythm Heart sounds: S1 normal heart sound present, S2 normal heart sound present and no murmurs Peripheral pulses: Peripheral pulses 2+ throughout GI Inspection: Yes normal to inspection Palpation (GI): Soft to palpation, nontender and not rigid Auscultation: normal bowel sounds General: Yes no CVA tenderness Back/Spine/Pelvis Back: no CVA tenderness Skin General skin exam: no rashes or lesions noted, elasticity normal and turgor normal Neuro General: no meningeal signs Extrem General: Yes normal to inspection, Yes capillary refill normal and Yes no clubbing, cyanosis or edema Psych Appearance: well kempt Mental Status: other (non verbal, cooperative) Results AMB Rapid Strep AMB Rapid Strep Negative Last Edit by Kareen Jimenez CMA on 08/22/23 09:38 Results Reviewed Results Reviewed: Laboratory Last Values Strep Scn Rapid Clinic Negative 08/22/23 09:32 Assessment & Plan Assessment & Plan (1) Acute pharyngitis: Code(s): J02.9 - Acute pharyngitis, unspecified Qualifiers: Pharyngitis/tonsillitis etiology: unspecified etiology Qualified Code(s): J02.9 - Acute pharyngitis, unspecified Plan: 38 year-old male with a history of intellectually disability/nonverbal, spastic quadriplegic cerebral palsy, spina bifida, schizophrenia, bipolar disorder seen in walk in clinic today with his father who verbalizes he believes his son has sore throat and loss of appetite x 1 week. Physical exam reveals posterior oral pharyngeal erythema, uvula non displaced, no white patches, and no tonsilar abscess. Covid/RSV/Flu nasal swab obtained and sent to lab; results negative for covid, RSV or Flu. Will treat for acute pharyngitis with Penicillin 500 mg po bid. Acetaminophen 1000 mg po q4-6 hrs prn throat pain Encouraged popsicles, puddings, Jello, and Warm soups. Encouraged plenty of fluid. Return to office with worsening or unrelieved symptoms, will f/u with PCP or ER if appetite does not improve, or if not drinking fluids. (2) Sore throat: Code(s): J02.9 - Acute pharyngitis, unspecified Plan: Covid/RSV/Flu nasal swab obtained and sent to lab; results negative for covid, RSV or Flu. Will treat for acute pharyngitis with Penicillin 500 mg po bid. Acetaminophen 1000 mg po q4-6 hrs prn throat pain Encouraged popsicles, puddings, Jello, and Warm soups. Encouraged plenty of fluid. Return to office with worsening or unrelieved symptoms, will f/u with PCP or ER if appetite does not improve, or if not drinking fluids. (3) Loss of appetite: Code(s): R63.0 - Anorexia Plan: Covid/RSV/Flu nasal swab obtained and sent to lab; results negative for covid, RSV or Flu. Will treat for acute pharyngitis with Penicillin 500 mg po bid. Acetaminophen 1000 mg po q4-6 hrs prn throat pain Encouraged popsicles, puddings, Jello, and Warm soups. Encouraged plenty of fluid. Return to office with worsening or unrelieved symptoms, will f/u with PCP or ER if appetite does not improve, or if not drinking fluids. Orders: Orders AMB Rapid Strep Screen Today J02.9 - Acute pharyngitis, unspecified SARS-CoV2/FLU/RSV Today J02.9 - Acute pharyngitis, unspecified, R63.0 - Anorexia Medications: New penicillin V potassium 500 mg PO BID 14 tabs 0RF J02.9 - Acute pharyngitis, unspecified Coding Level of Care Code Est Pt Level 3 (57469) Diagnoses Acute pharyngitis, unspecified etiology J02.9 Pharyngitis/tonsillitis etiology: unspecified etiology Sore throat J02.9 Loss of appetite R63.0
[2023-08-22 09:20] VITALS: BP 122/78; PULSE 87; TEMP 36.1; O2SAT 98
== END 2023-08-22 09:52 | disposition home or self-care (01) ==
PROVIDERS: PCP Internal Medicine; Visit Provider Nurse Practitioner Acute Care
DX: J02.9 Acute pharyngitis, unspecified (principal); R63.0 Anorexia
CPT/HCPCS: 87880; 99051; 99213

== ENCOUNTER 2023-08-22 09:40 | Outpatient (REF) | payer OTHER, SELFPAY ==
[2023-08-22 12:34] LABS: Influenza A PCR NEGATIVE (Negative); Influenza B PCR NEGATIVE (Negative); Resp Syncy Virus RNA Qual PCR NEGATIVE (Negative); SARS COV2 PCR INHOUSE NEGATIVE (Negative)
== END 2023-08-22 09:41 | disposition home or self-care (01) ==
LOC: HO.LAB 09:40
PROVIDERS: Visit Provider Nurse Practitioner Acute Care
DX: Z11.52 Encounter for screening for COVID-19 (principal); J02.9 Acute pharyngitis, unspecified; R63.0 Anorexia
CPT/HCPCS: 0241U

== ENCOUNTER 2023-08-25 16:08 | Outpatient (AMB) | payer OTHER, SELFPAY ==
[2023-08-25 16:09] VITALS: BP 122/80; PULSE 72; O2SAT 97
--- NOTE | 2023-08-25 16:09 | MHC.PC.OV ---
Vital Signs 08/25/23 16:09 BMI Reason not done Patient refused/unable BP 122/80 Blood Pressure Location Lt brachial Position Sitting Pulse 72 Pulse Source Pulse Oximeter Pulse Oximetry (%) 97 Oxygen Delivery Method Room Air Intake Visit Reasons: not drinking or eating, weakness Loom Checker Required: No Accompanied by: Self / Same As Patient Allergies No Known Allergies [No Known Allergies*] Allergy (Verified 08/26/23 05:24) Medication List - Last Reconciled 08/26/23 by Scot Mosley MD [ADULT DIAPERS (XL) As directed] carbamazepine 200 mg PO BID [DISPOSABLE VINYL GLOVES (large) As directed] [DISPOSABLE WIPES As directed] ibuprofen 800 mg PO BID PRN 30 days miscellaneous medical supply Adult Diapers- size: X-Large penicillin V potassium 500 mg PO BID polyethylene glycol 3350 17 grams PO DAILY 90 days quetiapine 25 mg PO BEDTIME [UNDERPADS As directed] ziprasidone HCl 80 mg PO BID Tobacco use date assessed: 08/25/23 Dental Screening Dental Screen Date: 08/25/23 Did you have a dental visit in the last 12 months?: Yes Did you have a dental problem in the last 6 months where you did not have access to dental care?: No Was dental information given to patient?: Patient has dentist HPI not drinking or eating, weakness HPI Details Patient was brought in by family today for follow up He reportedly has not been eating or drinking much for the past couple of weeks His family has also noticed that he seems to be trying to get to his throat at times recently, making him suspect that he may be experiencing some sore throat /throat pain which is causing him to not wanting to eat or drink He was brought to the walk-in clinic few days ago for evaluation and he was started empirically on oral penicillin His family states that the patient seems to be doing better over the past couple of days and he is now also eating and drinking more He has not had any fever or chills lately Family has not noticed any significant symptoms of cough and congestion No nausea / vomiting and no change in bowel habits noted [facility] Medical History Spina bifida Schizophrenia Bipolar disorder Constipation Gallstones without obstruction of gallbladder Allergic rhinitis Spastic quadriplegic cerebral palsy Surgical History No pertinent past surgical history Family History Father High blood pressure Mother No problems noted. Social History Housing: House Alcohol intake: never Patient Tobacco Use Status: Never used Tobacco e-Cigarette/Vaping Use: Never Used Second Hand Smoke Exposure: No service: No Current occupational status: disabled Cognitive needs: No Hearing needs: No Vision needs: No Questionnaire PHQ-9 Over the last 2 weeks, how often have you been bothered by any of the following problems? 1. Little interest or pleasure in doing things: not at all 2. Feeling down, depressed, or hopeless: not at all 3. Trouble falling or staying asleep, or sleeping too much: not at all 4. Feeling tired or having little energy: not at all 5. Poor appetite or overeating: not at all 6. Feeling bad about yourself - or that you are a failure or have let yourself or your family down: not at all 7. Trouble concentrating on things, such as reading the newspaper or watching television: not at all 8. Moving or speaking so slowly that other people could have noticed. Or the opposite - being so fidgety or restless that you have been moving around a lot more than usual: not at all 9. Thoughts that you would be better off or of hurting yourself in some way: not at all Total score: 0 Depression Screening Interpretation: Negative Depression Screening Done: Yes 99191 - PHQ-9 Billing: Yes Source: Developed by Drs. Bienvenido Donald, Paris Figueredo, Mauro Valera and colleagues, with an educational pedro luis from [employer]. Thrive Questionnaire Date Thrive assessed: 08/25/23 I am a: Parent/Caregiver What is your living situation today?: I have a steady place to live Within the past 12 months, did the food you bought not last and you didn't have the money to get more?: Never true Within the past 12 months, did you worry whether your food would run out before you got money to buy more?: Never true Do you have trouble paying for medicines?: No Do you have trouble getting transportation to medical appointments?: No Do you have trouble paying your heating and electricity bill?: No Do you have trouble taking care of your child, family member or friend?: No Do you have trouble with day-to-day activities such as bathing, preparing meals, shopping, managing finances, etc.?: No Are you currently unemployed and looking for a job?: No Are you interested in more education?: No Please select the resources that you would like help with: None Currently or been in a relationship where the following occur: no concerns reported THRIVE Score: 0 AUDIT C Alcohol Use Questionnaire (AUDIT-C) 1. How often do you have a drink containing alcohol?: Never 3. How often do you have six or more drinks on one occasion?: Never Total Score: 0 Score Reviewed/Action Taken: Yes JALEESA-7 AMB Questionnaire JALEESA-7 Date JALEESA - 7 assessed: 08/25/23 Feeling nervous, anxious, or on edge: 0 = Not at all Not being able to stop or control worryin = Not at all Worrying too much about different things: 0 = Not at all Trouble relaxin = Not at all Being so restless that it is hard to sit still: 0 = Not at all Becoming easily annoyed or irritable: 0 = Not at all Feeling afraid as if something awful might happen: 0 = Not at all Total JALEESA-7 score (0-4 normal; 5-9 mild; 10-14 moderate; 15-21 severe): 0 Source: Developed by Drs. Bienvenido Donald, Paris Figueredo, Mauro Valera and colleagues, with an educational pedro luis from [employer]. Review of Systems Const Details: ROS is limited and obtained primarily from patient's family as patient is not able to verbalize or communicate appropriately due to his physical incapacities Denies chills, Denies fever(s) and Denies headache(s) ENT Denies headache(s), Denies nasal congestion, Denies nasal discharge, Reports odynophagia (improving) and Reports sore throat Card Denies chest pain, Denies palpitations and Denies dyspnea Resp Denies chest congestion, Denies cough, Denies dyspnea and Denies wheezing GI Denies abdominal pain, Denies constipation, Denies diarrhea, Denies nausea, Reports odynophagia (improving) and Denies vomiting Denies hematuria and Reports urinary incontinence Musc Denies joint swelling Skin/Breast Denies rash and Denies skin ulcer Neuro Denies headache(s) Endo Denies palpitations Aller/Immun Denies wheezing Physical exam (Primary Care) Vital Signs: Last Vital Signs Pulse 72 08/25/23 16:09 BP 122/80 08/25/23 16:09 Pulse Ox 97 08/25/23 16:09 Oxygen Delivery Method Room Air 08/25/23 16:09 Tobacco/Smoking Status: Tobacco use Status Tobacco use date assessed 08/25/23 08/25/23 16:12 Patient Tobacco Use Status Never used Tobacco 08/25/23 16:12 e-Cigarette/Vaping Use Never Used 08/25/23 16:12 PHQ-9: PHQ-9 Score PHQ-9: Total score 0 08/25/23 16:56 Depression Screening Interpretation: Negative Thrive Assessment: Date of Thrive Assessment Date Thrive assessed 08/25/23 08/25/23 16:12 Currently or been in a relationship where the following occur: no concerns reported Const Other: Physical exam is limited due to patient's wheelchair-bound status, physical disabilities and inability to cooperate with exam General: no acute distress and alert Limitations: wheelchair HENMT Throat: Yes tonsils normal, Yes posterior oropharynx abnormal ((+) erythema) and No postnasal drainage Neck Neck: Yes no lymphadenopathy and Yes supple Resp Auscultation: clear to auscultation bilaterally Cardio Rate: regular rate Rhythm: regular rhythm Heart sounds: no murmurs GI Palpation (GI): Soft to palpation and no guarding Neuro Other: (+) spastic paraplegia; unable to perform neuro exam due to patient's condition but he does respond in a limited way to external stimuli Speech: Global aphasia present Extrem Other: extremities are all contracted and atrophic due to his spastic cerebral palsy and quadriplegia General: Yes no pedal edema Psych Other: unable to assess Assessment and Plan Assessment & Plan (1) Acute pharyngitis: Code(s): J02.9 - Acute pharyngitis, unspecified Qualifiers: Pharyngitis/tonsillitis etiology: unspecified etiology Qualified Code(s): J02.9 - Acute pharyngitis, unspecified Plan: Improving Continue Penicillin V 500 mg BID (2) Anorexia: Code(s): R63.0 - Anorexia Plan: Was likely due to patient's sore throat and this is expected to continue improving and resolving with continuing Tx over the next few days (3) Spastic quadriplegic cerebral palsy: Code(s): G80.0 - Spastic quadriplegic cerebral palsy Plan: Patient was getting PT/OT regularly but this was interrupted by the COVID-19 pandemic Family states that they try to perform some PT/OT on patient on their own and get him back to resuming his regular PT/OT when it is appropriate Continue Carbamnazepine 200 mg BID (4) Bipolar disorder: Code(s): F31.9 - Bipolar disorder, unspecified Qualifiers: Active/Remission status: currently active Current bipolar episode type: mixed Current episode severity: unspecified Qualified Code(s): F31.60 - Bipolar disorder, current episode mixed, unspecified Plan: Continue Quetiapine 25 mg QD (5) Schizophrenia: Code(s): F20.9 - Schizophrenia, unspecified Qualifiers: Schizophrenia type: unspecified Qualified Code(s): F20.9 - Schizophrenia, unspecified Plan: Continue Ziprasidone 80 mg BID Follow up with psychiatry as scheduled Plan To return as scheduled next week for his annual physical examination Coding Level of Care Code Est Pt Level 3 (58284) Diagnoses Acute pharyngitis, unspecified etiology J02.9 Pharyngitis/tonsillitis etiology: unspecified etiology Anorexia R63.0 Spastic quadriplegic cerebral palsy G80.0 Bipolar affective disorder, current episode mixed, current episode severity unspecified F31.60 Active/Remission status: currently active Current bipolar episode type: mixed Current episode severity: unspecified Schizophrenia, unspecified type F20.9 Schizophrenia type: unspecified
== END 2023-08-25 17:15 | disposition home or self-care (01) ==
PROVIDERS: PCP Internal Medicine; Visit Provider Internal Medicine
DX: J02.9 Acute pharyngitis, unspecified (principal); G80.0 Spastic quadriplegic cerebral palsy; F31.60 Bipolar disorder, current episode mixed, unspecified; F20.9 Schizophrenia, unspecified; R63.0 Anorexia
CPT/HCPCS: 99213

== ENCOUNTER 2023-09-02 09:02 | Outpatient (AMB) | payer OTHER, SELFPAY ==
[2023-09-02 09:03] VITALS: BP 130/86; PULSE 78; O2SAT 98
--- NOTE | 2023-09-02 09:03 | MHC.PC.OV ---
Vital Signs 09/02/23 09:03 BMI Reason not done Patient refused/unable BP 130/86 Blood Pressure Location Lt brachial Position Sitting Pulse 78 Pulse Source Pulse Oximeter Pulse Oximetry (%) 98 Oxygen Delivery Method Room Air Intake Visit Reasons: Annual PE Bath House Attendant Required: No Accompanied by: Self / Same As Patient Allergies No Known Allergies [No Known Allergies*] Allergy (Verified 09/02/23 09:40) Medication List - Last Reconciled 09/06/23 by Scot Mosley MD [ADULT DIAPERS (XL) As directed] carbamazepine 200 mg PO BID [DISPOSABLE VINYL GLOVES (large) As directed] [DISPOSABLE WIPES As directed] ibuprofen 800 mg PO BID PRN 30 days miscellaneous medical supply Adult Diapers- size: X-Large polyethylene glycol 3350 17 grams PO DAILY 90 days quetiapine 25 mg PO BEDTIME [UNDERPADS As directed] ziprasidone HCl 80 mg PO BID Tobacco use date assessed: 09/02/23 Dental Screening Dental Screen Date: 09/02/23 Did you have a dental visit in the last 12 months?: Yes Did you have a dental problem in the last 6 months where you did not have access to dental care?: No Was dental information given to patient?: Patient has dentist HPI Annual PE HPI Details Patient is brought in by family today for his annual physical examination His family states that he is currently eating and drinking well - states that his previous issues appear to have improved a lot since he was treated with oral antibiotics for his sore throat He is doing okay overall with no other acute issues at present - no headaches, fever, chest pains or SOB noted lately No nausea/vomiting, no abdominal pain and no change in bowel habits noted lately [facility] Medical History Spina bifida Schizophrenia Bipolar disorder Constipation Gallstones without obstruction of gallbladder Allergic rhinitis Spastic quadriplegic cerebral palsy Surgical History No pertinent past surgical history Family History Father High blood pressure Mother No problems noted. Social History Housing: House Alcohol intake: never Patient Tobacco Use Status: Never used Tobacco e-Cigarette/Vaping Use: Never Used Second Hand Smoke Exposure: No service: No Current occupational status: disabled Cognitive needs: No Hearing needs: No Vision needs: No Questionnaire PHQ-9 Over the last 2 weeks, how often have you been bothered by any of the following problems? 1. Little interest or pleasure in doing things: not at all 2. Feeling down, depressed, or hopeless: not at all 3. Trouble falling or staying asleep, or sleeping too much: not at all 4. Feeling tired or having little energy: not at all 5. Poor appetite or overeating: not at all 6. Feeling bad about yourself - or that you are a failure or have let yourself or your family down: not at all 7. Trouble concentrating on things, such as reading the newspaper or watching television: not at all 8. Moving or speaking so slowly that other people could have noticed. Or the opposite - being so fidgety or restless that you have been moving around a lot more than usual: not at all 9. Thoughts that you would be better off or of hurting yourself in some way: not at all Total score: 0 Depression Screening Interpretation: Negative Depression Screening Done: Yes 99672 - PHQ-9 Billing: Yes Source: Developed by Drs. Bienvenido Donald, Paris Figueredo, Mauro Valera and colleagues, with an educational pedro luis from [employer]. Thrive Questionnaire Date Thrive assessed: 09/02/23 I am a: Parent/Caregiver What is your living situation today?: I have a steady place to live Within the past 12 months, did the food you bought not last and you didn't have the money to get more?: Never true Within the past 12 months, did you worry whether your food would run out before you got money to buy more?: Never true Do you have trouble paying for medicines?: No Do you have trouble getting transportation to medical appointments?: No Do you have trouble paying your heating and electricity bill?: No Do you have trouble taking care of your child, family member or friend?: No Do you have trouble with day-to-day activities such as bathing, preparing meals, shopping, managing finances, etc.?: No Are you currently unemployed and looking for a job?: No Are you interested in more education?: No Please select the resources that you would like help with: None Currently or been in a relationship where the following occur: no concerns reported THRIVE Score: 0 AUDIT C Alcohol Use Questionnaire (AUDIT-C) 1. How often do you have a drink containing alcohol?: Never 3. How often do you have six or more drinks on one occasion?: Never Total Score: 0 Score Reviewed/Action Taken: Yes JALEESA-7 AMB Questionnaire JALEESA-7 Date JALEESA - 7 assessed: 09/02/23 Feeling nervous, anxious, or on edge: 0 = Not at all Not being able to stop or control worryin = Not at all Worrying too much about different things: 0 = Not at all Trouble relaxin = Not at all Being so restless that it is hard to sit still: 0 = Not at all Becoming easily annoyed or irritable: 0 = Not at all Feeling afraid as if something awful might happen: 0 = Not at all Total JALEESA-7 score (0-4 normal; 5-9 mild; 10-14 moderate; 15-21 severe): 0 Source: Developed by Drs. Bienvenido Donald, Paris Figueredo, Mauro Valera and colleagues, with an educational pedro luis from [employer]. Review of Systems Const Details: ROS is limited and obtained primarily from patient's family as patient is not able to verbalize or communicate appropriately due to his physical incapacities Denies body aches, Denies chills, Denies fatigue, Denies fever(s), Denies headache(s) and Denies malaise Eyes Denies eye discharge, Denies dry eyes and Denies irritation ENT Denies dysphagia, Denies dizziness, Denies ear discharge, Denies otalgia, Denies headache(s), Denies nasal congestion, Denies neck mass and Denies sore throat Card Denies chest pain, Denies rapid heart rate, Denies irregular heart rhythm, Denies palpitations and Denies dyspnea Resp Denies chest congestion, Denies cough, Denies dyspnea and Denies wheezing GI Denies abdominal pain, Denies bloating, Denies change in bowel habits, Denies dysphagia, Denies diarrhea, Denies nausea and Denies vomiting Details: patient wears adult diapers Denies hematuria, Denies penile discharge, Denies scrotal swelling, Denies testicular mass and Denies testicular pain Musc Denies back pain, Denies arthralgias, Denies joint swelling and Denies muscle weakness Skin/Breast Denies change in pigmentation, Denies lesions, Denies rash and Denies unusual bruising Neuro Denies dizziness and Denies headache(s) Endo Denies fatigue and Denies palpitations Aller/Immun Denies wheezing Physical exam (Primary Care) Vital Signs: Last Vital Signs Pulse 78 09/02/23 09:03 BP 130/86 09/02/23 09:03 Pulse Ox 98 09/02/23 09:03 Oxygen Delivery Method Room Air 09/02/23 09:03 Tobacco/Smoking Status: Tobacco use Status Tobacco use date assessed 09/02/23 09/02/23 09:05 Patient Tobacco Use Status Never used Tobacco 09/02/23 09:05 e-Cigarette/Vaping Use Never Used 09/02/23 09:05 PHQ-9: PHQ-9 Score PHQ-9: Total score 0 09/02/23 09:47 Depression Screening Interpretation: Negative Thrive Assessment: Date of Thrive Assessment Date Thrive assessed 09/02/23 09/02/23 09:05 Currently or been in a relationship where the following occur: no concerns reported Const Other: Physical exam is limited due to patient's wheelchair-bound status, physical disabilities and inability to cooperate with exam General: comfortable, no acute distress and alert Limitations: behavioral limitations, physical limitations and wheelchair HENMT Head: Yes normocephalic Ears: TM's normal bilaterally and EAC's normal Throat: Yes posterior oropharynx normal Neck Neck: Yes no lymphadenopathy and Yes supple Resp Auscultation: clear to auscultation bilaterally, no rales and no wheezes Cardio Rate: regular rate Rhythm: regular rhythm Heart sounds: no murmurs GI Palpation (GI): Soft to palpation, nontender and no guarding Skin Lesions: no lesions Rashes: no rashes Neuro Other: (+) spastic paraplegia; unable to perform neuro exam due to patient's condition but he does respond in a limited way to external stimuli Speech: Global aphasia present Extrem Other: extremities are all contracted and atrophic due to his spastic cerebral palsy and quadriplegia General: Yes no pedal edema Psych Other: unable to assess Assessment and Plan Assessment & Plan (1) Annual physical exam: Onset Date: ~12/03/22 Code(s): Z00.00 - Encounter for general adult medical examination without abnormal findings Plan: Check labs (2) Spastic quadriplegic cerebral palsy: Code(s): G80.0 - Spastic quadriplegic cerebral palsy Plan: Patient was getting PT/OT regularly but this was interrupted by the COVID-19 pandemic Family states that they try to perform some PT/OT on patient on their own and get him back to resuming his regular PT/OT when it is appropriate Continue Carbamnazepine 200 mg BID (3) Allergic rhinitis: Code(s): J30.9 - Allergic rhinitis, unspecified Qualifiers: Allergic rhinitis trigger: unspecified Allergic rhinitis seasonality: unspecified Qualified Code(s): J30.9 - Allergic rhinitis, unspecified Plan: Continue Loratadine 10 mg QD PRN and Fluticasone 50 mcg nasal spray QD PRN (4) Gallstones without obstruction of gallbladder: Code(s): K80.20 - Calculus of gallbladder without cholecystitis without obstruction Qualifiers: Cholelithiasis location: gallbladder Cholecystitis presence: without cholecystitis Qualified Code(s): K80.20 - Calculus of gallbladder without cholecystitis without obstruction Plan: They have been advised that no surgical interventions are required as long as patient is asymptomatic This was incidentally noted when patient had abdominal x-rays done a couple of years ago (5) Constipation: Code(s): K59.00 - Constipation, unspecified Qualifiers: Constipation type: unspecified constipation type Qualified Code(s): K59.00 - Constipation, unspecified Plan: Encouraged increased oral fluids and dietary fiber Continue MiraLax 17 gm QD and OTC stool softeners as needed (6) Bipolar disorder: Code(s): F31.9 - Bipolar disorder, unspecified Qualifiers: Active/Remission status: currently active Current bipolar episode type: mixed Current episode severity: unspecified Qualified Code(s): F31.60 - Bipolar disorder, current episode mixed, unspecified Plan: Continue Quetiapine 25 mg QD (7) Schizophrenia: Code(s): F20.9 - Schizophrenia, unspecified Qualifiers: Schizophrenia type: unspecified Qualified Code(s): F20.9 - Schizophrenia, unspecified Plan: Continue Ziprasidone 80 mg BID Follow up with psychiatry as scheduled Plan Follow up in 6 months Orders: Orders UA CC w/rflx Micro + Cult 09/05/23 R30.0 - Dysuria, R62.7 - Adult failure to thrive, R63.0 - Anorexia, R63.4 - Abnormal weight loss LIO Reflex Titer and Pattern 09/05/23 R62.7 - Adult failure to thrive, R63.0 - Anorexia, R63.4 - Abnormal weight loss Testosterone, Free/Total 09/05/23 R62.7 - Adult failure to thrive, R63.0 - Anorexia, R63.4 - Abnormal weight loss, R79.89 - Other specified abnormal findings of blood chemistry Comprehensive [place]. Panel Fast 09/05/23 E78.00 - Pure hypercholesterolemia, unspecified, R62.7 - Adult failure to thrive, R63.0 - Anorexia, R63.4 - Abnormal weight loss Lipid Panel 09/05/23 E78.00 - Pure hypercholesterolemia, unspecified, R62.7 - Adult failure to thrive, R63.0 - Anorexia, R63.4 - Abnormal weight loss C Reactive Protein 09/05/23 R62.7 - Adult failure to thrive, R63.0 - Anorexia, R63.4 - Abnormal weight loss Coding Level of Care Code Est Pt Prev Care 40-64y(01416) Diagnoses Annual physical exam Z00.00 Spastic quadriplegic cerebral palsy G80.0 Allergic rhinitis, unspecified seasonality, unspecified trigger J30.9 Allergic rhinitis trigger: unspecified Allergic rhinitis seasonality: unspecified Calculus of gallbladder without cholecystitis without obstruction K80.20 Cholelithiasis location: gallbladder Cholecystitis presence: without cholecystitis Constipation, unspecified constipation type K59.00 Constipation type: unspecified constipation type Bipolar affective disorder, current episode mixed, current episode severity unspecified F31.60 Active/Remission status: currently active Current bipolar episode type: mixed Current episode severity: unspecified Schizophrenia, unspecified type F20.9 Schizophrenia type: unspecified
== END 2023-09-02 09:54 | disposition home or self-care (01) ==
PROVIDERS: PCP Internal Medicine; Visit Provider Internal Medicine
DX: Z00.00 Encounter for general adult medical examination without abnormal findings (principal); G80.0 Spastic quadriplegic cerebral palsy; F31.60 Bipolar disorder, current episode mixed, unspecified; F20.9 Schizophrenia, unspecified; J30.9 Allergic rhinitis, unspecified; K80.20 Calculus of gallbladder without cholecystitis without obstruction; K59.00 Constipation, unspecified
CPT/HCPCS: 99396

== ENCOUNTER 2023-09-05 07:49 | Outpatient (REF) | payer OTHER, SELFPAY ==
[2023-09-05 08:32] LABS: MANUAL DIFF FLAG NO
[2023-09-05 09:18] LABS: Basophils Percent Auto 0.2 % (0-2); Eosinophils Percent Auto 0.6 % (0-4); Hematocrit 42.1 % (42.0-52.0); Hemoglobin 14.1 g/dl (14.0-18.0); Imm Gran Abs Auto 0.02 X10*3/uL (0.00-0.03); Imm Gran Pct Auto 0.3 % (0.0-0.4); Lymphocytes Absolute Auto 1.6 X10*3/uL (1.2-4.9); Lymphocytes Percent Auto 24.3 % (20-40); Mean Corpuscular HGB Conc 33.5 g/dl (31.0-36.0); Mean Corpuscular Volume 83.5 fL (80.0-98.0); Mean Platelet Volume 9.4 fL (9.4-12.4); Monocytes Absolute Auto 0.3 X10*3/uL (0.1-1.2); Neutrophils Absolute Auto 4.4 x10*3/uL (2.0-8.3); Neutrophils Percent Auto 69.6 % (45-73); Platelet Count 314 X10*3/uL (160-400); Red Blood Count 5.04 X10*6/uL (4.60-5.80); Red Cell Distribution Width 12.6 % (11.0-16.0); White Blood Count 6.4 X10*3/uL (4.8-10.8)
[2023-09-05 10:17] LABS: Erythrocyte Sedimentation Rate 3 MM/HR (0-15)
[2023-09-05 10:38] LABS: Alanine Aminotransferase 33 U/L (0-40); Albumin Level 4.2 g/dL (3.5-5.0); Alkaline Phosphatase 50 U/L (39-117); Anion Gap 14 (12-20); Aspartate Amino Transferase 19 U/L (5-37); Bilirubin Total 0.3 mg/dL (0.0-1.0); Blood Urea Nitrogen 11 mg/dL (9-16); C Reactive Protein 0.19 mg/dL (< or = 0.50); Calcium 9.4 mg/dL (8.4-10.2); Carbon Dioxide 25 mmol/L (22-29); Chloride 105 mmol/L (96-108); Cholesterol 133 mg/dL (<200); Estimated Glomerular Filt Rate > 60; Glucose Fasting 89 mg/dL (60-99); HDL Cholesterol 50 mg/dL (>40); LDL Cholesterol Calculated 73 mg/dL (<100); Potassium 3.6 mmol/L (3.3-5.1); Sodium 140 mmol/L (135-145); Total Protein 6.9 g/dL (6.5-8.0); Triglycerides 53 mg/dL (<150)
[2023-09-05 10:59] LABS: TSH reflex Free T4 1.13 uIU/mL (0.32-4.0); Vitamin D 25-OH Total 16.5 ng/mL (>30)
[2023-09-11 14:19] LABS: Testosterone, Free 49.2 pg/mL (35.0-155.0); Testosterone, Total 349 ng/dL (250-1100)
[2023-09-18 09:59] LABS: Anti Nuclear Antibody Screen POSITIVE (NEGATIVE)
== END 2023-09-05 07:50 | disposition home or self-care (01) ==
LOC: HO.LAB 07:49
PROVIDERS: PCP Internal Medicine; Visit Provider Internal Medicine
DX: Z00.00 Encounter for general adult medical examination without abnormal findings (principal); E55.9 Vitamin D deficiency, unspecified; R63.4 Abnormal weight loss; R62.7 Adult failure to thrive; R63.0 Anorexia; R79.89 Other specified abnormal findings of blood chemistry; E78.00 Pure hypercholesterolemia, unspecified; D64.9 Anemia, unspecified; R30.0 Dysuria
CPT/HCPCS: 36415; 80053; 80061; 82306; 84402; 84403; 84443; 85025; 85652; 86038; 86039; 86140

== ENCOUNTER 2023-12-18 09:40 | Outpatient (AMB) | payer OTHER, SELFPAY ==
--- NOTE | 2023-12-18 10:34 | MHC.OFFWIV ---
Intake Vital Signs 12/18/23 10:42 BMI Reason not done Patient refused/unable BP 122/78 Blood Pressure Location Rt brachial Position Sitting Pulse 80 Pulse Source Pulse Oximeter Temp 97.8 F Temp Source Temporal Artery Scan Pulse Oximetry (%) 98 Intake Visit Reasons: EP Clearance letter to return to day program Patient Tobacco Use Status: Never used Tobacco Allergies No Known Allergies [No Known Allergies*] Allergy (Verified 12/18/23 10:43) Do you need a note to return to daycare/school/sports/work: Yes HPI HPI Comments History of Present Illness Details 38 y/o male patient who presents to walk in clinic asking for clearance letter to return to Day care program. Pt accompanied by Care takes who provides History. medical education manager reports that Pt has been not eating as well and sometimes refuses to eat dinner. Pt recently was assigned a new [employer] and maybe He has not adjusted to the change emotionally. [facility] Medical History Spina bifida Schizophrenia Bipolar disorder Constipation Gallstones without obstruction of gallbladder Allergic rhinitis Spastic quadriplegic cerebral palsy Surgical History No pertinent past surgical history Family History Father High blood pressure Mother No problems noted. Social History Housing: House Alcohol intake: never Patient Tobacco Use Status: Never used Tobacco e-Cigarette/Vaping Use: Never Used Second Hand Smoke Exposure: No service: No Current occupational status: disabled Cognitive needs: No Hearing needs: No Vision needs: No Review of Systems Const All systems reviewed & are unremarkable except as noted in HPI and below Physical Exam Const Limitations: behavioral limitations and wheelchair Psych Other: Non- verbal Attitude: cooperative Assessment & Plan Assessment & Plan (1) Upper respiratory infection: Code(s): J06.9 - Acute upper respiratory infection, unspecified Qualifiers: URI type: unspecified viral URI Qualified Code(s): J06.9 - Acute upper respiratory infection, unspecified Plan: - Pt cleared to return to Day care program. Coding Level of Care Code Est Pt Level 2 (78472) Diagnoses Viral upper respiratory tract infection J06.9 URI type: unspecified viral URI Time Spent (min) 10
[2023-12-18 10:42] VITALS: BP 122/78; PULSE 80; TEMP 36.6; O2SAT 98
== END 2023-12-18 10:57 | disposition home or self-care (01) ==
PROVIDERS: PCP Internal Medicine; Visit Provider Nurse Practitioner Family
DX: J06.9 Acute upper respiratory infection, unspecified (principal)
CPT/HCPCS: 99212

== ENCOUNTER 2024-02-27 08:12 | Outpatient (REF) | payer OTHER, SELFPAY ==
[2024-02-27 09:00] LABS: MANUAL DIFF FLAG NO
[2024-02-27 09:45] LABS: Basophils Percent Auto 0.5 % (0-2); Eosinophils Percent Auto 0.7 % (0-4); Hematocrit 42.1 % (42.0-52.0); Imm Gran Abs Auto 0.02 X10*3/uL (0.00-0.03); Imm Gran Pct Auto 0.3 % (0.0-0.4); Lymphocytes Absolute Auto 1.8 X10*3/uL (1.2-4.9); Mean Corpuscular HGB Conc 33.3 g/dl (31.0-36.0); Mean Corpuscular Volume 84.2 fL (80.0-98.0); Mean Platelet Volume 9.3 fL (9.4-12.4); Monocytes Absolute Auto 0.3 X10*3/uL (0.1-1.2); Monocytes Percent Auto 4.5 % (2-11); Neutrophils Absolute Auto 3.8 x10*3/uL (2.0-8.3); Platelet Count 311 X10*3/uL (160-400)
[2024-02-27 10:07] LABS: Carbamazepine Tegretol 6.8 mcg/mL (5.0-12.0)
== END 2024-02-27 08:13 | disposition home or self-care (01) ==
LOC: HO.LAB 08:12
PROVIDERS: PCP Internal Medicine; Visit Provider General Practice
DX: F31.5 Bipolar disorder, current episode depressed, severe, with psychotic features (principal); Z79.899 Other long term (current) drug therapy
CPT/HCPCS: 36415; 80156; 85025

== ENCOUNTER 2024-03-02 09:16 | Outpatient (AMB) | payer OTHER, SELFPAY ==
--- NOTE | 2024-03-02 09:19 | A.OFFPC_ITS ---
Vital Signs 03/02/24 09:19 BMI Reason not done Patient refused/unable Blood Pressure Location Lt brachial Position Sitting Pulse Source Pulse Oximeter Oxygen Delivery Method Room Air Intake Visit Reasons: Follow Up Intake Note: Could not do vitals due to behavior Allergies No Known Allergies [No Known Allergies*] Allergy (Verified 03/02/24 09:48) Medication List - Last Reconciled 03/02/24 by Scot Mosley MD [ADULT DIAPERS (XL) As directed] carbamazepine 200 mg PO BID [DISPOSABLE VINYL GLOVES (large) As directed] [DISPOSABLE WIPES As directed] ibuprofen 800 mg PO BID PRN 30 days miscellaneous medical supply Adult Diapers- size: X-Large polyethylene glycol 3350 17 grams PO DAILY 90 days quetiapine 25 mg PO BEDTIME [UNDERPADS As directed] ziprasidone HCl 80 mg PO BID Tobacco use date assessed: 09/02/23 Dental Screening Dental Screen Date: 09/02/23 HPI Follow Up HPI Details Patient is brought in today by his father for his follow up visit His family states that he is currently doing well - has been eating and drinking normally without any problems He's had no issues with acute headaches, fever, sore throat, swallowing issues or any recent cough/cold symptoms He has no reports of chest pains or SOB lately No nausea/vomiting, no abdominal pain and no change in bowel habits noted Patient is reportedly being seen by psychiatrist at [facility] in [place] regularly every 3 months or so They would also like to know how he did on his labs done earlier this year [facility] Medical History Vitamin D deficiency Positive LIO (antinuclear antibody) Spina bifida Schizophrenia Bipolar disorder Constipation Gallstones without obstruction of gallbladder Allergic rhinitis Spastic quadriplegic cerebral palsy Surgical History No pertinent past surgical history Family History Father High blood pressure Mother No problems noted. Social History Housing: House Alcohol intake: never Patient Tobacco Use Status: Never used Tobacco Tobacco use type: Cigarette e-Cigarette/Vaping Use: Never Used Second Hand Smoke Exposure: No service: No Current occupational status: disabled Cognitive needs: Yes Hearing needs: No Vision needs: No Questionnaire PHQ-9 Over the last 2 weeks, how often have you been bothered by any of the following problems? 1. Little interest or pleasure in doing things: not at all 2. Feeling down, depressed, or hopeless: not at all 3. Trouble falling or staying asleep, or sleeping too much: not at all 4. Feeling tired or having little energy: not at all 5. Poor appetite or overeating: not at all 6. Feeling bad about yourself - or that you are a failure or have let yourself or your family down: not at all 7. Trouble concentrating on things, such as reading the newspaper or watching television: not at all 8. Moving or speaking so slowly that other people could have noticed. Or the opposite - being so fidgety or restless that you have been moving around a lot more than usual: not at all 9. Thoughts that you would be better off or of hurting yourself in some way: not at all Total score: 0 Depression Screening Interpretation: Negative Depression Screening Done: Yes 67879 - PHQ-9 Billing: Yes Source: Developed by Drs. Bienvenido Donald, Paris Figueredo, Mauro Valera and colleagues, with an educational pedro luis from [employer]. Thrive Questionnaire Date Thrive assessed: 09/02/23 AUDIT C Alcohol Use Questionnaire (AUDIT-C) 1. How often do you have a drink containing alcohol?: Never 3. How often do you have six or more drinks on one occasion?: Never Total Score: 0 Score Reviewed/Action Taken: Yes JALEESA-7 AMB Questionnaire JALEESA-7 Date JALEESA - 7 assessed: 09/02/23 Source: Developed by Paris Peres Kurt Kroenke and colleagues, with an educational pedro luis from [employer]. Review of Systems Const Details: ROS is limited and obtained primarily from patient's family as patient is not able to verbalize or communicate appropriately due to his physical incapacities Denies chills, Denies fatigue, Denies fever(s) and Denies headache(s) Eyes Denies eye discharge ENT Denies dysphagia, Denies dizziness, Denies ear discharge, Denies otalgia, Denies headache(s), Denies nasal congestion, Denies neck mass and Denies sore throat Card Denies chest pain, Denies rapid heart rate, Denies irregular heart rhythm, Denies palpitations and Denies dyspnea Resp Denies chest congestion, Denies cough, Denies dyspnea and Denies wheezing GI Denies abdominal pain, Denies dysphagia, Denies diarrhea, Denies nausea and Denies vomiting Details: patient wears adult diapers Denies hematuria, Denies scrotal swelling and Denies testicular mass Musc Denies back pain and Denies joint swelling Skin/Breast Denies lesions and Denies rash Neuro Denies dizziness and Denies headache(s) Endo Denies fatigue and Denies palpitations Aller/Immun Denies wheezing Physical exam (Primary Care) Vital Signs: Oxygen Delivery Method Room Air 03/02/24 09:19 Tobacco/Smoking Status: Tobacco use Status Tobacco use date assessed 09/02/23 03/02/24 09:26 Patient Tobacco Use Status Never used Tobacco 03/02/24 09:26 Tobacco use type Cigarette 03/02/24 09:26 e-Cigarette/Vaping Use Never Used 03/02/24 09:26 PHQ-9: PHQ-9 Score PHQ-9: Total score 0 03/02/24 09:51 Depression Screening Interpretation: Negative Thrive Assessment: Date of Thrive Assessment Date Thrive assessed 09/02/23 03/02/24 09:26 Const Other: Physical exam is limited due to patient's wheelchair-bound status, physical disabilities and inability to cooperate with exam General: no acute distress and alert Limitations: behavioral limitations, physical limitations and wheelchair HENMT Ears: TM's normal bilaterally and EAC's normal Mouth: Normal oral and palatal mucosa present Throat: Yes posterior oropharynx normal Neck Neck: Yes no lymphadenopathy and Yes supple Thyroid: Thyroid normal Resp Auscultation: clear to auscultation bilaterally, no rales and no wheezes Cardio Rate: regular rate Rhythm: regular rhythm Heart sounds: no murmurs GI Palpation (GI): Soft to palpation, nontender and no guarding Auscultation: normal bowel sounds Back/Spine/Pelvis Other: unable to assess/examine - in wheelchair Skin Rashes: no rashes Neuro Other: (+) spastic paraplegia; unable to perform neuro exam due to patient's condition but he does respond in a limited way to external stimuli Speech: Global aphasia present Extrem Other: extremities are all contracted and atrophic due to his spastic cerebral palsy and quadriplegia General: Yes no pedal edema Psych Other: unable to assess Results Reviewed Results Reviewed: Laboratory Tests 09/05/23 02/27/24 08:29 08:59 WBC 6.0 Hgb 14.0 Hct 42.1 Plt Count 311 ESR 3 Sodium 140 Potassium 3.6 Creatinine 0.66 Estimated GFR > 60 Fasting Glucose 89 Calcium 9.4 AST 19 ALT 33 C-Reactive Protein 0.19 Triglycerides 53 Cholesterol 133 LDL Cholesterol, Calc 73 HDL Cholesterol 50 25-OH Vitamin D Total 16.5 L TSH 1.13 Total Testosterone 349 Fr Testosterone Dialys 49.2 Assessment and Plan Assessment & Plan (1) Spastic quadriplegic cerebral palsy: Code(s): G80.0 - Spastic quadriplegic cerebral palsy Plan: Patient is back to getting PT/OT regularly This was previously interrupted by the COVID-19 pandemic and his family was doing some PT/OT for patient on their own during the pandemic Continue Carbamazepine 200 mg BID (2) Allergic rhinitis: Code(s): J30.9 - Allergic rhinitis, unspecified Qualifiers: Allergic rhinitis seasonality: unspecified Allergic rhinitis trigger: unspecified Qualified Code(s): J30.9 - Allergic rhinitis, unspecified Plan: Continue Loratadine 10 mg QD PRN and Fluticasone 50 mcg nasal spray QD PRN (3) Vitamin D deficiency: Code(s): E55.9 - Vitamin D deficiency, unspecified Plan: Results of his labs done a few months ago reviewed and discussed with patient's father, who is here with him today Have advised them that patient's labs done a few months ago have all come back normal except for his Vitamin D level, which is very low Will start him on Vitamin D3 2000 units QD (4) Gallstones without obstruction of gallbladder: Code(s): K80.20 - Calculus of gallbladder without cholecystitis without obstruction Qualifiers: Cholecystitis presence: without cholecystitis Cholelithiasis location: gallbladder Qualified Code(s): K80.20 - Calculus of gallbladder without cholecystitis without obstruction Plan: They have been advised that no surgical interventions are required as long as patient is asymptomatic This was incidentally noted when patient had abdominal x-rays done a couple of years ago (5) Constipation: Code(s): K59.00 - Constipation, unspecified Qualifiers: Constipation type: unspecified constipation type Qualified Code(s): K59.00 - Constipation, unspecified Plan: His family is encouraged again to help patient increase his oral fluids and dietary fiber intake Continue MiraLax 17 gm QD and OTC stool softeners as needed (6) Bipolar disorder: Code(s): F31.9 - Bipolar disorder, unspecified Qualifiers: Active/Remission status: currently active Current bipolar episode type: mixed Current episode severity: unspecified Qualified Code(s): F31.60 - Bipolar disorder, current episode mixed, unspecified Plan: Continue Quetiapine 25 mg QD (7) Schizophrenia: Code(s): F20.9 - Schizophrenia, unspecified Qualifiers: Schizophrenia type: unspecified Qualified Code(s): F20.9 - Schizophrenia, unspecified Plan: Continue Ziprasidone 80 mg BID Follow up with psychiatry as scheduled - patient goes to [facility] in [place] Have advised them to remind his psychiatrist to send over a brief updated summary of his visit when he is seen for his next follow up so we can update his med list accordingly Plan To return as scheduled in 6 months for his next annual physical examination Medications: New cholecalciferol (vitamin D3) 50 mcg PO DAILY 90 days 90 caps 3RF E55.9 - Vitamin D deficiency, unspecified Coding Level of Care Code Est Pt Level 4 (14516) Diagnoses Spastic quadriplegic cerebral palsy G80.0 Allergic rhinitis, unspecified seasonality, unspecified trigger J30.9 Allergic rhinitis seasonality: unspecified Allergic rhinitis trigger: unspecified Vitamin D deficiency E55.9 Calculus of gallbladder without cholecystitis without obstruction K80.20 Cholecystitis presence: without cholecystitis Cholelithiasis location: gallbladder Constipation, unspecified constipation type K59.00 Constipation type: unspecified constipation type Bipolar affective disorder, current episode mixed, current episode severity unspecified F31.60 Active/Remission status: currently active Current bipolar episode type: mixed Current episode severity: unspecified Schizophrenia, unspecified type F20.9 Schizophrenia type: unspecified
== END 2024-03-02 09:58 | disposition home or self-care (01) ==
PROVIDERS: PCP Internal Medicine; Visit Provider Internal Medicine
DX: G80.0 Spastic quadriplegic cerebral palsy (principal); F31.60 Bipolar disorder, current episode mixed, unspecified; F20.9 Schizophrenia, unspecified; J30.9 Allergic rhinitis, unspecified; E55.9 Vitamin D deficiency, unspecified; K80.20 Calculus of gallbladder without cholecystitis without obstruction; K59.00 Constipation, unspecified
CPT/HCPCS: 99214

== ENCOUNTER 2024-04-14 08:49 | Outpatient (AMB) | payer OTHER, SELFPAY ==
--- NOTE | 2024-04-14 08:58 | MHC.OFFWIV ---
Intake Vital Signs 04/14/24 09:00 BMI Reason not done Patient refused/unable BP 118/70 Blood Pressure Location Rt brachial Pulse 102 H Pulse Source Pulse Oximeter Pulse Oximetry (%) 94 Oxygen Delivery Method Room Air Intake Visit Reasons: EP Fever, sore throat, not eating Intake Note: Patient here for fevers, sore throat, loss of appetite which started yesterday. Patient Tobacco Use Status: Never used Tobacco Allergies No Known Allergies [No Known Allergies*] Allergy (Verified 04/14/24 09:00) Do you need a note to return to daycare/school/sports/work: No PFSH Medical History Vitamin D deficiency Positive LIO (antinuclear antibody) Spina bifida Schizophrenia Bipolar disorder Constipation Gallstones without obstruction of gallbladder Allergic rhinitis Spastic quadriplegic cerebral palsy Surgical History No pertinent past surgical history Family History Father High blood pressure Mother No problems noted. Social History Housing: House Alcohol intake: never Patient Tobacco Use Status: Never used Tobacco Tobacco use type: Cigarette e-Cigarette/Vaping Use: Never Used Second Hand Smoke Exposure: No service: No Current occupational status: disabled Cognitive needs: Yes Hearing needs: No Vision needs: No Review of Systems Const All systems reviewed & are unremarkable except as noted in HPI and below Physical Exam Vital Signs: Last Vital Signs Pulse 102 H 04/14/24 09:00 BP 118/70 04/14/24 09:00 Pulse Ox 94 04/14/24 09:00 Oxygen Delivery Method Room Air 04/14/24 09:00 Const Other: Non verbal due to cerebral palsy, in wheelchair. Unable to follow commands. General: comfortable and no acute distress Nutritional Appearance: well nourished Limitations: physical limitations and wheelchair HEENT Head: Yes normal to inspection Ears: external ears normal and TM's normal bilaterally General nose exam: Normal external nose present, Normal nares present and No nasal discharge present Face and sinus: Yes normal facial exam and Yes sinuses nontender Mouth: Abnormal oral and palatal mucosa present (dry oral mucosae) Throat: Yes tonsils normal, Yes uvula midline and Yes posterior oropharynx abnormal (Erythema) Eyes General: appearance normal, both eyes and all related structures Neck Neck: Yes normal visual inspection Resp Effort & Inspection: normal respiratory effort, no respiratory distress, not tachypneic, no tripod positioning and no use of accessory muscles Auscultation: clear to auscultation bilaterally Cardio Jugular venous distension: no JVD Rate: regular rate Rhythm: regular rhythm Heart sounds: S1 normal heart sound present, S2 normal heart sound present, no click, no gallops, no murmurs and no rubs Skin General skin exam: no rashes or lesions noted, elasticity normal and turgor normal Extrem General: Yes normal to inspection and Yes no clubbing, cyanosis or edema Results AMB Rapid Strep AMB Rapid Strep Negative Last Edit by GUILLERMINA Jordan on 04/14/24 09:25 Assessment & Plan Assessment & Plan (1) Upper respiratory infection: Code(s): J06.9 - Acute upper respiratory infection, unspecified Qualifiers: URI type: unspecified URI Qualified Code(s): J06.9 - Acute upper respiratory infection, unspecified Plan: Viral swab obtained to rule out Covid based on symptoms. Advised mask wearing while symptomatic and quarantine per current CDC guidelines. Reviewed at home support methods including hydration, humidification, vix vapor rub, sinus rinse. Discussed treatment with antiviral therapy for covid with paxlovid including appropriate use and side effects, and need to start medication within 5 day of symptom onset, preferably within 48 hours of symptom onset. Based on complexity of administering oral medication and risk of aspiration coupled with current symptomatology, I advised against use of paxlovid due to risk vs benefits. Advised follow up with worsening symptoms such as dyspnea at rest, which would require emergent evaluation. Advised monitoring for hydration status by monitoring skin for tenting and increasing hydration as able. Plan See above for full details and plan. Coding Level of Care Code Est Pt Level 4 (45106) Diagnoses Upper respiratory tract infection, unspecified type J06.9 URI type: unspecified URI Time Spent (min) 25
[2024-04-14 09:00] VITALS: BP 118/70; PULSE 102; O2SAT 94
== END 2024-04-14 10:07 | disposition home or self-care (01) ==
PROVIDERS: PCP Internal Medicine; Visit Provider Registered Nurse
DX: J06.9 Acute upper respiratory infection, unspecified (principal); Z13.9 Encounter for screening, unspecified

== ENCOUNTER 2024-04-14 08:49 | Outpatient (REF) | payer OTHER, SELFPAY ==
[2024-04-14 11:26] LABS: Influenza A PCR NEGATIVE (Negative); Influenza B PCR NEGATIVE (Negative); Resp Syncy Virus RNA Qual PCR NEGATIVE (Negative); SARS COV2 PCR INHOUSE NEGATIVE (Negative)
== END 2024-04-14 08:50 | disposition home or self-care (01) ==
LOC: HO.LAB 08:49
PROVIDERS: PCP Internal Medicine; Visit Provider Registered Nurse
DX: J06.9 Acute upper respiratory infection, unspecified (principal)
CPT/HCPCS: 0241U; 87880; 99212

== ENCOUNTER 2024-05-10 13:16 | Outpatient (AMB) | payer OTHER, SELFPAY ==
--- NOTE | 2024-05-10 13:25 | MHC.OFFWIV ---
Intake Vital Signs 05/10/24 13:26 BMI Reason not done Patient refused/unable BP 110/72 Blood Pressure Location Rt brachial Position Sitting Pulse 80 Pulse Source Pulse Oximeter Pulse Oximetry (%) 98 Oxygen Delivery Method Room Air Intake Visit Reasons: EP Sore throat Intake Note: Patient here for sore throat, no appetite, not drinking water and last week he had diarrhea. Patient Tobacco Use Status: Never used Tobacco Allergies No Known Allergies [No Known Allergies*] Allergy (Verified 05/10/24 13:27) Do you need a note to return to daycare/school/sports/work: No HPI HPI Comments History of Present Illness Details 38 y/o male patient who presents to the walk in clinic with c/o Anorexia. Accompanied by Father who provides history. Father reports that patient has been refusing to eat his food or will eat very small amount of food. Pt has also been spitting out his medications. Father reports that this has been going on for 2 days now. [facility] Medical History Vitamin D deficiency Positive LIO (antinuclear antibody) Spina bifida Schizophrenia Bipolar disorder Constipation Gallstones without obstruction of gallbladder Allergic rhinitis Spastic quadriplegic cerebral palsy Surgical History No pertinent past surgical history Family History Father High blood pressure Mother No problems noted. Social History Housing: House Alcohol intake: never Patient Tobacco Use Status: Never used Tobacco Tobacco use type: Cigarette e-Cigarette/Vaping Use: Never Used Second Hand Smoke Exposure: No service: No Current occupational status: disabled Cognitive needs: Yes Hearing needs: No Vision needs: No Physical Exam Vital Signs: Last Vital Signs Pulse 80 05/10/24 13:26 BP 110/72 05/10/24 13:26 Pulse Ox 98 05/10/24 13:26 Oxygen Delivery Method Room Air 05/10/24 13:26 Const General: no acute distress Limitations: behavioral limitations, physical limitations and wheelchair HEENT Mouth: other (Very dry mucous membranes) Throat: Yes tonsils normal and Yes uvula midline Resp Effort & Inspection: normal respiratory effort and able to speak in complete sentences Auscultation: clear to auscultation bilaterally, no crackles, no rales, no rhonchi and no wheezes Cardio Heart sounds: S1 normal heart sound present and S2 normal heart sound present Results AMB Rapid Strep AMB Rapid Strep Negative Last Edit by GUILLERMINA Jordan on 05/10/24 13:58 Results Reviewed Results Reviewed: Laboratory Last Values Strep Scn Rapid Clinic Negative 05/10/24 13:57 Assessment & Plan Assessment & Plan (1) Loss of appetite: Code(s): R63.0 - Anorexia Plan: Advised father to bring Patient to ED for IV fluids and hydration, since he is not able to take liquids or solids by mouth. Unable to determine the etiology of symptoms that father is describing. Pt stable today, all vitals and examination findings are WNL. Orders: Orders AMB Rapid Strep Screen Today Z13.9 - Encounter for screening, unspecified Coding Level of Care Code Est Pt Level 3 (72634) Diagnoses Loss of appetite R63.0 Time Spent (min) 15
[2024-05-10 13:26] VITALS: BP 110/72; PULSE 80; O2SAT 98
== END 2024-05-10 14:13 | disposition home or self-care (01) ==
PROVIDERS: PCP Internal Medicine; Visit Provider Nurse Practitioner Family
DX: Z13.9 Encounter for screening, unspecified (principal); R63.0 Anorexia

== ENCOUNTER → 2024-05-10 13:16 | Outpatient (BNVA) | payer OTHER, SELFPAY | PROVIDERS: PCP Internal Medicine; Visit Provider Nurse Practitioner Family | DX: R63.0 Anorexia (principal) | CPT/HCPCS: 87880; 99212 ==

== ENCOUNTER 2024-09-06 08:57 | Outpatient (AMB) | payer OTHER, SELFPAY ==
[2024-09-06 08:59] VITALS: BP 118/78; PULSE 86; O2SAT 98
--- NOTE | 2024-09-06 08:59 | A.OFFPC_ITS ---
Vital Signs 09/06/24 08:59 BMI Reason not done Patient refused/unable BP 118/78 Blood Pressure Location Lt brachial Position Sitting Pulse 86 Pulse Source Pulse Oximeter Pulse Oximetry (%) 98 Oxygen Delivery Method Room Air Intake Visit Reasons: Annual Exam Nonprofit Director Required: No Accompanied by: Father Allergies No Known Allergies [No Known Allergies*] Allergy (Verified 09/06/24 09:18) Medication List - Last Reconciled 09/06/24 by Scot Mosley MD [ADULT DIAPERS (XL) As directed] carbamazepine 200 mg PO BID cholecalciferol (vitamin D3) 50 mcg PO DAILY 90 days [DISPOSABLE VINYL GLOVES (large) As directed] [DISPOSABLE WIPES As directed] ibuprofen 800 mg PO BID PRN 30 days miscellaneous medical supply Adult Diapers- size: X-Large polyethylene glycol 3350 17 grams PO DAILY 90 days quetiapine 25 mg PO BEDTIME [UNDERPADS As directed] ziprasidone HCl 80 mg PO BID Tobacco use date assessed: 09/06/24 Dental Screening Dental Screen Date: 09/06/24 Did you have a dental visit in the last 12 months?: Yes Did you have a dental problem in the last 6 months where you did not have access to dental care?: No Was dental information given to patient?: Patient has dentist HPI Annual Exam HPI Details Patient is brought in by family today for his annual physical examination His family states that he is currently eating and drinking well He is doing okay overall with no other acute issues He's had no recent complaints of headaches, fever, chest pains or SOB No nausea/vomiting, no abdominal pain No change in bowel habits noted [facility] Medical History Vitamin D deficiency Positive LIO (antinuclear antibody) Spina bifida Schizophrenia Bipolar disorder Constipation Gallstones without obstruction of gallbladder Allergic rhinitis Spastic quadriplegic cerebral palsy Surgical History No pertinent past surgical history Family History Father High blood pressure Mother No problems noted. Social History Housing: House Alcohol intake: never Patient Tobacco Use Status: Never used Tobacco Tobacco use type: Cigarette e-Cigarette/Vaping Use: Never Used Second Hand Smoke Exposure: No service: No Current occupational status: disabled Cognitive needs: Yes Hearing needs: No Vision needs: No Questionnaire PHQ-9 Over the last 2 weeks, how often have you been bothered by any of the following problems? 1. Little interest or pleasure in doing things: not at all 2. Feeling down, depressed, or hopeless: not at all 3. Trouble falling or staying asleep, or sleeping too much: not at all 4. Feeling tired or having little energy: nearly every day 5. Poor appetite or overeating: not at all 6. Feeling bad about yourself - or that you are a failure or have let yourself or your family down: not at all 7. Trouble concentrating on things, such as reading the newspaper or watching television: not at all 8. Moving or speaking so slowly that other people could have noticed. Or the opposite - being so fidgety or restless that you have been moving around a lot more than usual: not at all 9. Thoughts that you would be better off or of hurting yourself in some way: not at all Total score: 3 Depression Screening Interpretation: Negative Depression Screening Done: Yes 47547 - PHQ-9 Billing: Yes Source: Developed by Drs. Bienvenido Donald, Paris Figueredo, Mauro Valera and colleagues, with an educational pedro luis from [employer]. Thrive Questionnaire Date Thrive assessed: 09/06/24 I am a: Parent/Caregiver What is your living situation today?: I have a steady place to live Within the past 12 months, did the food you bought not last and you didn't have the money to get more?: I choose not to answer this question Within the past 12 months, did you worry whether your food would run out before you got money to buy more?: I choose not to answer this question Do you have trouble paying for medicines?: I choose not to answer this question Do you have trouble getting transportation to medical appointments?: I choose not to answer this question Do you have trouble paying your heating and electricity bill?: I choose not to answer this question Do you have trouble taking care of your child, family member or friend?: No Do you have trouble with day-to-day activities such as bathing, preparing meals, shopping, managing finances, etc.?: I choose not to answer this question Are you currently unemployed and looking for a job?: I choose not to answer this question Are you interested in more education?: I choose not to answer this question Please select the resources that you would like help with: None Currently or been in a relationship where the following occur: No concerns reported THRIVE Score: 0 AUDIT C Alcohol Use Questionnaire (AUDIT-C) 1. How often do you have a drink containing alcohol?: Never 3. How often do you have six or more drinks on one occasion?: Never Total Score: 0 Score Reviewed/Action Taken: Yes JALEESA-7 AMB Questionnaire JALEESA-7 Date JALEESA - 7 assessed: 09/06/24 Feeling nervous, anxious, or on edge: 0 = Not at all Not being able to stop or control worryin = Not at all Worrying too much about different things: 0 = Not at all Trouble relaxin = Not at all Being so restless that it is hard to sit still: 0 = Not at all Becoming easily annoyed or irritable: 0 = Not at all Feeling afraid as if something awful might happen: 0 = Not at all Total JALEESA-7 score (0-4 normal; 5-9 mild; 10-14 moderate; 15-21 severe): 0 Source: Developed by Drs. Bienvenido Donald, Paris Figueredo, Mauro Valera and colleagues, with an educational pedro luis from [employer]. Review of Systems Const Details: ROS is limited and obtained primarily from patient's family as patient is not able to verbalize or communicate appropriately due to his physical incapacities Denies chills, Denies fatigue, Denies fever(s) and Denies headache(s) Eyes Denies eye discharge, Denies dry eyes and Denies irritation ENT Denies dysphagia, Denies dizziness, Denies ear discharge, Denies headache(s), Denies nasal congestion, Denies nasal discharge, Denies neck mass and Denies sore throat Card Denies chest pain, Denies rapid heart rate, Denies irregular heart rhythm and Denies dyspnea Resp Denies chest congestion, Denies cough, Denies dyspnea and Denies wheezing GI Denies abdominal pain, Denies change in bowel habits, Denies dysphagia, Denies diarrhea, Denies nausea and Denies vomiting Details: patient wears adult diapers Denies hematuria, Denies penile discharge, Denies scrotal swelling, Denies testicular mass and Denies testicular pain Musc Denies back pain, Denies arthralgias and Denies joint swelling Skin/Breast Denies change in pigmentation, Denies lesions, Denies rash and Denies unusual bruising Neuro Denies dizziness and Denies headache(s) Endo Denies fatigue Aller/Immun Denies wheezing Physical exam (Primary Care) Vital Signs: Last Vital Signs Pulse 86 09/06/24 08:59 BP 118/78 09/06/24 08:59 Pulse Ox 98 09/06/24 08:59 Oxygen Delivery Method Room Air 09/06/24 08:59 Tobacco/Smoking Status: Tobacco use Status Tobacco use date assessed 09/06/24 09/06/24 09:02 Patient Tobacco Use Status Never used Tobacco 09/06/24 09:02 Tobacco use type Cigarette 09/06/24 09:02 e-Cigarette/Vaping Use Never Used 09/06/24 09:02 PHQ-9: PHQ-9 Score PHQ-9: Total score 3 09/06/24 09:25 Depression Screening Interpretation: Negative Thrive Assessment: Date of Thrive Assessment Date Thrive assessed 09/06/24 09/06/24 09:02 Currently or been in a relationship where the following occur: No concerns reported Const Other: Physical exam is limited due to patient's wheelchair-bound status, physical disabilities and inability to cooperate with exam General: comfortable, no acute distress and alert Limitations: behavioral limitations, physical limitations and wheelchair HENMT Head: Yes normocephalic Ears: TM's normal bilaterally and EAC's normal Throat: Yes posterior oropharynx normal Neck Neck: Yes no lymphadenopathy and Yes supple Resp Auscultation: clear to auscultation bilaterally, no rales and no wheezes Cardio Rate: regular rate Rhythm: regular rhythm Heart sounds: no murmurs GI Palpation (GI): Soft to palpation, nontender and no guarding Auscultation: normal bowel sounds Skin Lesions: no lesions Rashes: no rashes Neuro Other: (+) spastic paraplegia; unable to perform neuro exam due to patient's condition but he does respond in a limited way to external stimuli Speech: Global aphasia present Motor exam (neuro): No no tremor noted Extrem Other: extremities are all contracted and atrophic due to his spastic cerebral palsy and quadriplegia General: Yes no pedal edema Psych Other: unable to assess Coding Level of Care Code Est Pt Prev Care 40-64y(15610) Diagnoses Annual physical exam Z00.00 Spastic quadriplegic cerebral palsy G80.0 Allergic rhinitis, unspecified seasonality, unspecified trigger J30.9 Allergic rhinitis trigger: unspecified Allergic rhinitis seasonality: unspecified Calculus of gallbladder without cholecystitis without obstruction K80.20 Cholelithiasis location: gallbladder Cholecystitis presence: without cholecystitis Constipation, unspecified constipation type K59.00 Constipation type: unspecified constipation type Bipolar affective disorder, current episode mixed, current episode severity unspecified F31.60 Active/Remission status: currently active Current bipolar episode type: mixed Current episode severity: unspecified Schizophrenia, unspecified type F20.9 Schizophrenia type: unspecified Additional Codes PHQ-9 - 61683 - PHQ-9 Billing: Yes ([id number]) Assessment & Plan Assessment & Plan (1) Annual physical exam: Onset Date: ~12/03/22 Code(s): Z00.00 - Encounter for general adult medical examination without abnormal findings Category: Medical Plan: Check labs (2) Spastic quadriplegic cerebral palsy: Code(s): G80.0 - Spastic quadriplegic cerebral palsy Category: Medical Plan: Patient was getting PT/OT regularly in the past but this was interrupted by the COVID-19 pandemic Family tries to perform some PT/OT on patient on their own and will get him back to resuming his regular PT/OT when it is appropriate or needed Continue Carbamazepine 200 mg BID (3) Allergic rhinitis: Code(s): J30.9 - Allergic rhinitis, unspecified Category: Medical Qualifiers: Allergic rhinitis trigger: unspecified Allergic rhinitis seasonality: unspecified Qualified Code(s): J30.9 - Allergic rhinitis, unspecified Plan: Continue Loratadine 10 mg QD PRN and Fluticasone 50 mcg nasal spray QD PRN (4) Gallstones without obstruction of gallbladder: Code(s): K80.20 - Calculus of gallbladder without cholecystitis without obstruction Category: Medical Qualifiers: Cholelithiasis location: gallbladder Cholecystitis presence: without cholecystitis Qualified Code(s): K80.20 - Calculus of gallbladder without cholecystitis without obstruction Plan: Patient's family has been advised that no surgical interventions are required as long as patient is asymptomatic This was incidentally noted when patient had abdominal x-rays done a couple of years ago (5) Constipation: Code(s): K59.00 - Constipation, unspecified Category: Medical Qualifiers: Constipation type: unspecified constipation type Qualified Code(s): K59.00 - Constipation, unspecified Plan: They are again encouraged to help patient increase his oral fluids and dietary fiber intake Continue MiraLax 17 gm QD and OTC stool softeners as needed (6) Bipolar disorder: Code(s): F31.9 - Bipolar disorder, unspecified Category: Medical Qualifiers: Active/Remission status: currently active Current bipolar episode type: mixed Current episode severity: unspecified Qualified Code(s): F31.60 - Bipolar disorder, current episode mixed, unspecified Plan: Continue Quetiapine 25 mg QD (7) Schizophrenia: Code(s): F20.9 - Schizophrenia, unspecified Category: Medical Qualifiers: Schizophrenia type: unspecified Qualified Code(s): F20.9 - Schizophrenia, unspecified Plan: Continue Ziprasidone 80 mg BID Follow up with psychiatry as scheduled Plan Follow up in 6 months Orders: Orders Lipid Panel Today E78.00 - Pure hypercholesterolemia, unspecified, Z00.00 - Encounter for general adult medical examination without abnormal findings TSH reflex Free T4 Today E78.00 - Pure hypercholesterolemia, unspecified, Z00.00 - Encounter for general adult medical examination without abnormal findings Vitamin B12 and Folate Today E53.8 - Deficiency of other specified B group vitamins, Z00.00 - Encounter for general adult medical examination without abnormal findings Hemoglobin A1c Today R73.9 - Hyperglycemia, unspecified, Z00.00 - Encounter for general adult medical examination without abnormal findings Complete Blood Count Auto Diff Today D64.9 - Anemia, unspecified, Z00.00 - Encounter for general adult medical examination without abnormal findings Comprehensive [place]. Panel Fast Today E78.00 - Pure hypercholesterolemia, unspecified, Z00.00 - Encounter for general adult medical examination without abnormal findings Vitamin D 25-OH Total Today E55.9 - Vitamin D deficiency, unspecified, Z00.00 - Encounter for general adult medical examination without abnormal findings
== END 2024-09-06 09:30 | disposition home or self-care (01) ==
PROVIDERS: PCP Internal Medicine; Visit Provider Internal Medicine
DX: Z00.00 Encounter for general adult medical examination without abnormal findings (principal); G80.0 Spastic quadriplegic cerebral palsy; F31.60 Bipolar disorder, current episode mixed, unspecified; F20.9 Schizophrenia, unspecified; J30.9 Allergic rhinitis, unspecified; K80.20 Calculus of gallbladder without cholecystitis without obstruction; K59.00 Constipation, unspecified

== ENCOUNTER → 2024-09-06 08:57 | Outpatient (BNVA) | payer OTHER, SELFPAY | PROVIDERS: PCP Internal Medicine; Visit Provider Internal Medicine | DX: Z00.00 Encounter for general adult medical examination without abnormal findings (principal); G80.0 Spastic quadriplegic cerebral palsy; J30.9 Allergic rhinitis, unspecified; K80.20 Calculus of gallbladder without cholecystitis without obstruction; K59.00 Constipation, unspecified; F31.60 Bipolar disorder, current episode mixed, unspecified; F20.9 Schizophrenia, unspecified | CPT/HCPCS: 96127; 99396 ==

== ENCOUNTER 2024-09-12 11:39 | Emergency (ER) | payer OTHER, SELFPAY ==
--- NOTE | ~2024-09-12 | US_ITS ---
CLINICAL HISTORY: Abnormal GB on CT Limited abdominal ultrasound Comparison: CT/SR - CT ABDOMEN PELVIS WO IV CON - 09/12/24 16:12 EST US - LIMITED ABDOMEN [id number] - 10/26/19 14:03 EDT Findings: The common bile duct was not visualized. Cholelithiasis. No wall thickening or pericholecystic fluid. Sonographic Sebastian's sign not reported. Impression: Cholelithiasis without sonographic evidence of acute cholecystitis. This document has been electronically signed by: Sharona Juan MD on 09/12/2024 18:40:57
--- NOTE | ~2024-09-12 | CT_ITS ---
CLINICAL HISTORY: Pain CT abdomen and pelvis without contrast Comparison: CR/SR - XR ABDOMEN MIN 2V - 09/01/22 16:41 EST US - LIMITED ABDOMEN [id number] - 10/26/19 14:03 EDT CR/ND/SR - ABDOMEN UPRIGHT DECUB - 10/03/19 14:[address]/ND - ABD PELV W IV CON ONLY [id number] - 05/01/19 12:53 EDT Findings: Beam hardening artifact from spinal fusion hardware limits evaluation. No consolidation at the lung bases. Cholelithiasis. The gallbladder wall is not well seen. The prostate measures 5.3 cm in transverse dimension with mild intravesicular extension. The bladder is otherwise unremarkable. No hydronephrosis. Left nephrolithiasis measures 2 mm. The other solid organs are unremarkable. There is a prominent amount of air in the small bowel and colon. The small bowel measures the upper limit of normal size. The colon measures within normal limits. The appendix is not visualized. No secondary signs of acute appendicitis. No aneurysm. No calcified atherosclerotic disease. No lymphadenopathy. No ascites. No acute osseous abnormality. Thoracolumbar and bilateral sacroiliac fusion hardware. 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 Impression: Cholelithiasis. The gallbladder wall is not well seen. If there is clinical concern for acute cholecystitis evaluate further with right upper quadrant ultrasound. Mild ileus could be considered. This document has been electronically signed by: Sharona Juan MD on 09/12/2024 16:52:32
[2024-09-12 12:02] VITALS: BP 150/97; PULSE 107; RESP 22; TEMP 37.1; O2SAT 95; BMI 25.4
--- NOTE | 2024-09-12 12:52 | ED_ITS ---
HPI - General Adult General Chief complaint: General Medical Stated complaint: Sore Throat Not Eating Time Seen by Provider: 09/12/24 15:39 History of Present Illness HPI narrative: Patient is nonverbal and is here with his father with a complaint that for the last several days he has seemed uncomfortable, and is not eating and drinking normally, and feels very uncomfortable when he tries to eat He has not been coughing he has not been vomiting patient is unable to report if he has any chest pain or abdominal pain, he does not seem to have a runny nose or a fever per the father and main concern is decreased intake and seeming uncomfortable or in pain Related Data Home Medications ?Medication ?Instructions ?Recorded ?Confirmed carbamazepine 200 mg tablet 200 mg PO BID 05/20/21 09/06/24 quetiapine 25 mg tablet 25 mg PO BEDTIME 05/20/21 09/06/24 ziprasidone HCl 80 mg capsule 80 mg PO BID 05/20/21 09/06/24 miscellaneous medical supply ea miscellaneous .8x daily 01/17/22 09/06/24 Previous Rx's ?Medication ?Instructions ?Recorded ibuprofen 800 mg tablet 800 mg PO BID PRN pain 30 days #60 10/29/21 tabs cholecalciferol (vitamin D3) 50 50 mcg PO DAILY 90 days #90 caps 03/02/24 mcg (2,000 unit) capsule ADULT DIAPERS (XL) #240 ea 07/07/24 DISPOSABLE VINYL GLOVES (large) #4 ea 07/07/24 DISPOSABLE WIPES #400 ea 07/07/24 UNDERPADS #150 ea 07/07/24 polyethylene glycol 3350 17 gram 17 g PO DAILY 90 days #100 ea 07/29/24 oral powder packet Allergies Allergy/AdvReac Type Severity Reaction Status Date / Time No Known Allergies Allergy Verified 09/12/24 12:14 [No Known Allergies*] [facility] Past Medical History Source: nursing notes reviewed Medical History (Updated 09/12/24 @ 19:33 by DAVID Roth) Vitamin D deficiency Positive LIO (antinuclear antibody) Spina bifida Schizophrenia Bipolar disorder Constipation Gallstones without obstruction of gallbladder Allergic rhinitis Spastic quadriplegic cerebral palsy Surgical History No pertinent past surgical history Family History Family History Father High blood pressure Mother No problems noted. Social History Social History Housing: House Alcohol intake: never Patient Tobacco Use Status: Never used Tobacco Tobacco use type: Cigarette e-Cigarette/Vaping Use: Never Used Second Hand Smoke Exposure: No Advance Directives: No Advance Directives Information Provided: No service: No Current occupational status: disabled Cognitive needs: Yes Hearing needs: No Vision needs: No Physical Exam ED Vital Signs: Vital Signs - 24 hr 09/12/24 12:02 Temperature 98.8 F Pulse Rate 107 H Respiratory Rate 22 H Blood Pressure 150/97 H Pulse Oximetry 95 Oxygen Delivery Method Room Air BMI result Body Mass Index 25.4 General appearance no acute distress The ears there is no redness of tympanic membrane on either side, canals were patent and normal and no pain response when I moved the ear Sinuses nontender Pharynx seemed to be clear with membranes moist and no exudate Neck was supple The chest was clear to auscultation bilateral Heart no murmur auscultated Abdominal exam no distension no rebound or guarding Extremity exam limited by pre-existing paraplegia Skin patient is very clean with no wounds no redness no signs of any cellulitis Genital exam no swelling no testicular swelling no redness no paraphimosis Course Course Course Narrative: This is an RME: Additional HPI, ROS, PE not included below will be deferred to primary provider. RME assessment and note performed by: Belen Ledezma PA-C This is a 39-year-old male, with a history spina bifida, schizophrenia, bipolar, constipation who presents emergency department with concerns for sore throat. Reports that he has had decreased appetite. Reports that he is crying when he is eating. Plan: Viral swabs, strep swab, further ER evaluation This case was discussed with Dr. Cuellar who examined the patient as well and advised as the patient is not eating and had an ambiguous abdominal exam to get noncontrast CT scan which then showed cholelithiasis and we did an ultrasound to confirm there was no evidence of cholecystitis Ultrasound again showed cholelithiasis but without any evidence of cholecystitis Lactic acid was 1.5 troponin was 5.2, no acute findings on chemistry, no white count no acute finding on CBC, COVID flu and strep tests all negative EKG was done and showed sinus tachycardia, LVH, no acute ST elevations At 19:00 urinalysis is pending and case is signed out to Dr. Cuellar The patient was given a luciana janet and he was able to drink Reevaluation(s) Reevaluation #1: Dr. Cuellar's progress note: Patient with spina bifida was brought in initially because for few days patient appear to be uncomfortable when he eats, patient had an extensive workup including labs/CT/ultrasound of the abdomen which revealed cholelithiasis without acute cholecystitis, patient in the emergency department is able to drink and eat and as per father patient is at his baseline, still awaiting for urine sample to check UA case signed out to Dr. Gannon for further evaluation. Time: 00:32 Medications Administered Discontinued Medications Generic Name Dose Route Start Last Admin Trade Name Freq PRN Reason Stop Dose Admin Carbamazepine 200 mg 09/12/24 22:10 09/12/24 22:19 Carbamazepine 200 Mg Tablet PO 09/12/24 22:11 200 mg ONCE ONE Administration Quetiapine Fumarate 25 mg 09/12/24 22:10 09/12/24 22:19 Quetiapine Fumarate 25 Mg Tablet PO 09/12/24 22:11 25 mg ONCE ONE Administration Medical Decision Making Lab Data 09/12/24 14:35 09/12/24 14:35 Labs: Lab Results 09/12/24 09/12/24 09/12/24 Range/Units 14:35 16:02 17:12 WBC 9.1 (4.8-10.8) X10*3/uL RBC 5.43 (4.60-5.80) X10*6/uL Hgb 15.4 (14.0-18.0) g/dl Hct 45.5 (42.0-52.0) % MCV 83.8 (80.0-98.0) fL MCH 28.4 (27.0-33.0) pg MCHC 33.8 (31.0-36.0) g/dl RDW 13.0 (11.0-16.0) % Plt Count 353 (160-400) X10*3/uL MPV 9.1 L (9.4-12.4) fL Immature Gran % (Auto) 0.3 (0.0-0.4) % Neut % (Auto) 72.2 (45-73) % Lymph % (Auto) 21.9 (20-40) % [place] % (Auto) 4.9 (2-11) % Eos % (Auto) 0.4 (0-4) % Baso % (Auto) 0.3 (0-2) % Lymph # (Auto) 2.0 (1.2-4.9) X10*3/uL [place] # (Auto) 0.5 (0.1-1.2) X10*3/uL Eos # (Auto) 0.0 (0.0-0.4) X10*3/uL Baso # (Auto) 0.0 (0.0-0.2) X10*3/uL Abs Immat Gran (auto) 0.03 (0.00-0.03) X10*3/uL Absolute Neuts (auto) 6.6 (2.0-8.3) x10*3/uL Absolute Nucleated RBC 0.000 (0.0-0.012) X10*3/uL Nucleated RBC % (auto) 0.0 (0.0-0.2) /100WBC Sodium 142 (135-145) mmol/L Potassium 4.0 (3.3-5.1) mmol/L Chloride 107 (96-108) mmol/L Carbon Dioxide 20 L (22-29) mmol/L Anion Gap 19 (12-20) BUN 12 (9-16) mg/dL Creatinine 0.70 (0.5-1.4) mg/dL Estim Creat Clear Calc 98.2 Estimated GFR > 60 Random Glucose 72 (60-115) mg/dL Lactic Acid 1.5 (0.5-2.0) mmol/L Calcium 9.7 (8.4-10.2) mg/dL Magnesium 2.3 (1.6-2.6) mg/dL Total Bilirubin 0.4 (0.0-1.0) mg/dL Direct Bilirubin 0.2 (0.0-0.5) mg/dL AST 30 (5-37) U/L ALT 38 (0-40) U/L Alkaline Phosphatase 63 (39-117) U/L Troponin I High Sens 5.2 (<3.5-35.0) ng/L Total Protein 8.2 H (6.5-8.0) g/dL Albumin 4.7 (3.5-5.0) g/dL Lipase 18 (8-78) U/L Influenza Type A (PCR) NEGATIVE (Negative) Influenza Type B (PCR) NEGATIVE (Negative) RSV RNA Qual (PCR) NEGATIVE (Negative) SARS-CoV-2 RNA (RT-PCR) NEGATIVE (Negative) S. pyogenes GrpA GABRIELA Negative (Negative) Discharge Plan Discharge Clinical Impression: Pain Prescriptions: No Action ibuprofen 800 mg tablet 800 mg PO BID PRN (Reason: pain) 30 Days Qty: 60 1RF Rx Instructions: 1 tablet Orally Two times a day NEEDED with food for pains miscellaneous medical supply Misc miscellaneous .8x daily Rx Instructions: Adult Diapers- size: X-Large (DME) ADULT DIAPERS (XL) XL See Rx Instructions .Route .MEDSUPPLY Qty: 240 12RF Rx Instructions: As directed (DME) DISPOSABLE VINYL GLOVES (large) large See Rx Instructions .Route .MEDSUPPLY Qty: 4 11RF Rx Instructions: As directed (DME) DISPOSABLE WIPES See Rx Instructions .Route .MEDSUPPLY Qty: 400 12RF Rx Instructions: As directed (DME) UNDERPADS See Rx Instructions .Route .MEDSUPPLY Qty: 150 12RF Rx Instructions: As directed polyethylene glycol 3350 17 gram powder in packet 17 g PO DAILY 90 Days Qty: 100 3RF carbamazepine 200 mg tablet 200 mg PO BID quetiapine 25 mg tablet 25 mg PO BEDTIME ziprasidone HCl 80 mg capsule 80 mg PO BID cholecalciferol (vitamin D3) 50 mcg (2,000 unit) capsule 50 mcg PO DAILY 90 Days Qty: 90 3RF Print Language: Afghan
[2024-09-12 14:40] LABS: MANUAL DIFF FLAG NO
[2024-09-12 14:41] LABS: Basophils Percent Auto 0.3 % (0-2); Eosinophils Percent Auto 0.4 % (0-4); Hematocrit 45.5 % (42.0-52.0); Hemoglobin 15.4 g/dl (14.0-18.0); Imm Gran Abs Auto 0.03 X10*3/uL (0.00-0.03); Imm Gran Pct Auto 0.3 % (0.0-0.4); Lymphocytes Percent Auto 21.9 % (20-40); Mean Corpuscular HGB Conc 33.8 g/dl (31.0-36.0); Mean Corpuscular Hemoglobin 28.4 pg (27.0-33.0); Mean Corpuscular Volume 83.8 fL (80.0-98.0); Mean Platelet Volume 9.1 fL (9.4-12.4); Monocytes Absolute Auto 0.5 X10*3/uL (0.1-1.2); Monocytes Percent Auto 4.9 % (2-11); Neutrophils Absolute Auto 6.6 x10*3/uL (2.0-8.3); Neutrophils Percent Auto 72.2 % (45-73); Platelet Count 353 X10*3/uL (160-400); Red Blood Count 5.43 X10*6/uL (4.60-5.80); White Blood Count 9.1 X10*3/uL (4.8-10.8)
[2024-09-12 14:55] LABS: Alanine Aminotransferase 38 U/L (0-40); Albumin Level 4.7 g/dL (3.5-5.0); Alkaline Phosphatase 63 U/L (39-117); Anion Gap 19 (12-20); Aspartate Amino Transferase 30 U/L (5-37); Bilirubin Direct 0.2 mg/dL (0.0-0.5); Bilirubin Total 0.4 mg/dL (0.0-1.0); Blood Urea Nitrogen 12 mg/dL (9-16); Calcium 9.7 mg/dL (8.4-10.2); Carbon Dioxide 20 mmol/L (22-29); Chloride 107 mmol/L (96-108); Creatinine Clr Calc Pharmacy 98.2; Estimated Glomerular Filt Rate > 60; Glucose Random 72 mg/dL (60-115); Lipase 18 U/L (8-78); Magnesium 2.3 mg/dL (1.6-2.6); Sodium 142 mmol/L (135-145); Total Protein 8.2 g/dL (6.5-8.0)
[2024-09-12 15:22] LABS: Influenza A PCR NEGATIVE (Negative); Influenza B PCR NEGATIVE (Negative); Resp Syncy Virus RNA Qual PCR NEGATIVE (Negative); SARS COV2 PCR INHOUSE NEGATIVE (Negative)
[2024-09-12 16:19] LABS: IDNOW Serial# 58CA691E; Strep A Nucleic Acid Negative (Negative)
--- NOTE | 2024-09-12 16:53 | ECG_ITS ---
Test Reason : abd pain Blood Pressure : */* mmHG Vent. Rate : 101 BPM Atrial Rate : 101 BPM P-R Int : 114 ms QRS Dur : 82 ms QT Int : 358 ms P-R-T Axes : 84 70 41 degrees QTcB Int : 464 ms Sinus tachycardia Possible Left atrial enlargement Left ventricular hypertrophy ( Sokolow-Villalobos , Christ product ) Nonspecific ST abnormality Abnormal ECG No previous ECGs available Referred By: Dc Borjas Electronically Signed By: SERGIO PRIDE
[2024-09-12 17:41] LABS: Lactic Acid 1.5 mmol/L (0.5-2.0)
[2024-09-12 17:49] LABS: Troponin-I High Sensitivity 5.2 ng/L (<3.5-35.0)
[2024-09-12] MEDS: carBAMazepine 200 MG TABLET PO (22:19)
[2024-09-12] MEDS: QUEtiapine Fumarate 25 MG TABLET PO (22:19)
[2024-09-13 03:29] VITALS: BP 137/86; PULSE 108; RESP 20; TEMP 36.9; O2SAT 95
--- NOTE | 2024-09-13 03:30 | PC.NURSE ---
continue to wait for urine sample form patient. patient has male pure wick in place.
--- NOTE | 2024-09-13 05:39 | PC.NURSE ---
patient bladder scanned a second time. scanned for 238 ml. provider was at bedside. discussed plan of care with patients father.
[2024-09-13] MEDS: cefuroxime axetiL 250 MG TABLET PO (05:47)
[2024-09-13 05:55] VITALS: BP 137/86; PULSE 108; RESP 20; TEMP 36.9; O2SAT 95
== END 2024-09-13 06:07 | disposition home or self-care (01) ==
PROVIDERS: Physician Assistant Medical; Emergency Provider Emergency Medicine Emergency Medical Services; PCP Internal Medicine
DX: J02.9 Acute pharyngitis, unspecified (principal); F25.9 Schizoaffective disorder, unspecified; R50.9 Fever, unspecified; R00.0 Tachycardia, unspecified; R10.31 Right lower quadrant pain; Z03.818 Encounter for observation for suspected exposure to other biological agents ruled out; Z87.440 Personal history of urinary (tract) infections; Z79.899 Other long term (current) drug therapy
CPT/HCPCS: 0241U; 36415; 74176; 76705; 80048; 80076; 83605; 83690; 83735; 84484; 85025; 87040; 87077; 87205; 87651; 93005; 99284

== ENCOUNTER → 2024-09-12 16:01 | Outpatient (BNV) | payer OTHER, SELFPAY | PROVIDERS: Emergency Provider Emergency Medicine; PCP Internal Medicine; Visit Provider Radiology Diagnostic Radiology | DX: R10.9 Unspecified abdominal pain (principal) | CPT/HCPCS: 74176; 76705 ==

== ENCOUNTER → 2024-09-12 16:53 | Outpatient (BNV) | payer OTHER, SELFPAY | PROVIDERS: Emergency Provider Emergency Medicine Emergency Medical Services; PCP Internal Medicine; Visit Provider Internal Medicine | DX: I51.7 Cardiomegaly (principal); R00.0 Tachycardia, unspecified | CPT/HCPCS: 93010 ==

== ENCOUNTER 2024-11-22 13:13 | Outpatient (AMB) | payer OTHER, SELFPAY ==
--- NOTE | 2024-11-22 13:20 | AM.OFFWIN_ITS ---
Intake Vital Signs 3 11/22/24 13:24 BP 118/76 Blood Pressure Location Rt brachial Position Sitting Pulse 80 Pulse Source Pulse Oximeter Pulse Oximetry (%) 98 Oxygen Delivery Method Room Air Intake Visit Reasons: EP bump on head Intake Note: Patient here for obscess on head that has been there for about 1 week and recently opened up. Patient Tobacco Use Status: Never used Tobacco Allergies No Known Allergies [No Known Allergies*] Allergy (Verified 11/22/24 13:23) Do you need a note to return to daycare/school/sports/work: Yes HPI HPI Comments 2 History of Present Illness0 Details History of Present Illness - The patient is a 39-year-old male pres enting with head wound. - The injury occurred one week prior due to a head impact without loss of consciousness. - A substantial wound on the head is obs erved, with signs indicating infection. - Tenderness and fluctuation in the area affected are observed. - No signs of systemic infection, such a s fever or altered mental status, are noted. - The patient experiences pain in the ar ea of the wound Physical Exam General: Cooperative, healthy appearing, comfortable, no acute distress and well developed Orientation: nonverbal Limitations: wheelchair bound Head: posterior occipital area has 1.25cm round area of purulence with fluctuance and ttp, see above Ears: normal external ears bilat Nose: Normal External nose present Face and sinus: Normal facial exam Eyes: Appearance normal, both eyes and all related structures Neck: Normal visual inspection Respiratory: Normal respiratory effort Skin: No rashes or lesions noted Neuro: nonverbal, unable to cooperate with an exam Extremities: Normal to inspection [facility] Medical History (Updated 11/22/24 @ 14:02 by Stephanie Solis PA-C) Vitamin D deficiency Positive LIO (antinuclear antibody) Spina bifida Schizophrenia Bipolar disorder Constipation Gallstones without obstruction of gallbladder Allergic rhinitis Spastic quadriplegic cerebral palsy Surgical History No pertinent past surgical history Family History Father High blood pressure Mother No problems noted. Social History Housing: House Alcohol intake: never Patient Tobacco Use Status: Never used Tobacco Tobacco use type: Cigarette e-Cigarette/Vaping Use: Never Used Second Hand Smoke Exposure: No service: No Current occupational status: disabled Cognitive needs: Yes Hearing needs: No Vision needs: No Review of Systems Const All systems reviewed & are unremarkable except as noted in HPI and below Physical Exam Vital Signs: Last Vital Signs Pulse 80 11/22/24 13:24 BP 118/76 11/22/24 13:24 Pulse Ox 98 11/22/24 13:24 Oxygen Delivery Method Room Air 11/22/24 13:24 Assessment & Plan Assessment & Plan (1) Wound, open, head with complication: Code(s): S01.90XA - Unspecified open wound of unspecified part of head, initial encounter Qualifiers: Encounter type: initial encounter Qualified Code(s): S01.90XA - Unspecified open wound of unspecified part of head, initial encounter Plan: Head wound is clearly infected, I question whether there is an abscess as well and if it extends to the bone as it has been present for some time, family just noticed it about a week ago. His vital signs are stable and he has no other systemic symptoms of a systemic illness however with his inability to communicate and assess mental status, I would prefer he get imaging to assess the depth of the wound. The patient requires further evaluation in the emergency room due to the questionable depth of infection. A head CT scan may be warranted to assess the wound thoroughly for any deeper involvement. Arrangements have been made with the emergency department to anticipate the patient?s arrival, ensuring a prompt assessment. I have called an expect to the [facility] ED, spoke with Evangelist at 2pm. The communication aims to facilitate an expedited and thorough evaluation upon the patient's arrival. Patient was informed and verbally consented to the use of an ambient scribe for clinic note documentation during this visit. Coding Level of Care Code Est Pt Level 5 (78473) Diagnoses Open wound of head with complication, initial encounter S01.90XA Encounter type: initial encounter
[2024-11-22 13:24] VITALS: BP 118/76; PULSE 80; O2SAT 98
== END 2024-11-22 14:03 | disposition home or self-care (01) ==
PROVIDERS: PCP Internal Medicine; Visit Provider Physician Assistant
DX: S01.90XA Unspecified open wound of unspecified part of head, initial encounter (principal)

== ENCOUNTER → 2024-11-22 13:13 | Outpatient (BNVA) | payer OTHER, SELFPAY | PROVIDERS: PCP Internal Medicine; Visit Provider Physician Assistant | DX: S01.90XA Unspecified open wound of unspecified part of head, initial encounter (principal) | CPT/HCPCS: 99212 ==

== ENCOUNTER 2024-11-22 14:33 | Emergency (ER) | payer OTHER, SELFPAY ==
[2024-11-22 14:44] VITALS: PULSE 84; RESP 20; TEMP 36.9; O2SAT 96; BMI 36.2
--- NOTE | 2024-11-22 14:47 | ED.GENADULT ---
HPI - General Adult General Chief complaint: General Medical Stated complaint: Head injury/lac? Time Seen by Provider: 11/22/24 16:42 Source: family Mode of arrival: wheelchair Limitations: other ( cerebral palsy) History of Present Illness ED Provider: Dr. Kaylen Gannon HPI narrative: patient comes to the emergency room accompanied by his parents. Patient has cerebral palsy and unable to give significant history. According to the patient's parents, the patient has an abscess in the scalp. Patient is wheelchair-bound and he rubs his head frequently against the head rest. The parents noted that the patient was draining pus from the abscess couple of days ago. To their knowledge, patient has not had any fever. Related Data Home Medications ?Medication ?Instructions ?Recorded ?Confirmed carbamazepine 200 mg tablet 200 mg PO BID 05/20/21 09/06/24 quetiapine 25 mg tablet 25 mg PO BEDTIME 05/20/21 09/06/24 ziprasidone HCl 80 mg capsule 80 mg PO BID 05/20/21 09/06/24 miscellaneous medical supply ea miscellaneous .8x daily 01/17/22 09/06/24 Previous Rx's ?Medication ?Instructions ?Recorded ibuprofen 800 mg tablet 800 mg PO BID PRN pain 30 days #60 10/29/21 tabs cholecalciferol (vitamin D3) 50 50 mcg PO DAILY 90 days #90 caps 03/02/24 mcg (2,000 unit) capsule ADULT DIAPERS (XL) #240 ea 07/07/24 DISPOSABLE VINYL GLOVES (large) #4 ea 07/07/24 DISPOSABLE WIPES #400 ea 07/07/24 UNDERPADS #150 ea 07/07/24 polyethylene glycol 3350 17 gram 17 g PO DAILY 90 days #100 ea 07/29/24 oral powder packet cephalexin 500 mg capsule 500 mg PO BID #14 caps 11/22/24 doxycycline hyclate 100 mg tablet 100 mg PO BID #14 tabs 11/22/24 Allergies Allergy/AdvReac Type Severity Reaction Status Date / Time No Known Allergies Allergy Verified 11/22/24 14:47 [No Known Allergies*] Review of Systems Review of Systems: Yes Unobtainable due to mental condition and Other PMFSH Past Medical History Medical History Vitamin D deficiency Positive LIO (antinuclear antibody) Spina bifida Schizophrenia Bipolar disorder Constipation Gallstones without obstruction of gallbladder Allergic rhinitis Spastic quadriplegic cerebral palsy Surgical History No pertinent past surgical history Family History Family History Father High blood pressure Mother No problems noted. Social History Social History Housing: House Alcohol intake: never Patient Tobacco Use Status: Never used Tobacco Tobacco use type: Cigarette e-Cigarette/Vaping Use: Never Used Second Hand Smoke Exposure: No service: No Current occupational status: disabled Cognitive needs: Yes Hearing needs: No Vision needs: No Physical Exam ED Vital Signs: Vital Signs - 24 hr 11/22/24 14:44 Temperature 98.4 F Pulse Rate 84 Respiratory Rate 20 Pulse Oximetry 96 Oxygen Delivery Method Room Air BMI result Body Mass Index 36.2 Const Other: Appearance: Alert. Oriented X3. No acute distress. Eyes: Pupils equal, round and reactive to light. ENT: Pharynx normal. Neck: Normal inspection. Neck supple. No lymph nodes noted. No crepitus CVS: Normal heart rate and rhythm. Pulses normal. Normal S1 and S2 Respiratory: No respiratory distress. Breath sounds normal. No Wheezing. No rales Abdomen: Soft and nontender. No rigidity. No distention. Skin: Skin warm and dry. Normal skin color. Scalp: There is 3 cm x 2 cm lesion in the scalp, granulation tissue present, draining pus Extremities: No lower extremity edema. No Lacerations. No Rash Neuro: Oriented X 3. No motor deficit. No sensory deficit. Moving all extremities. No slurred speech. CN 2 through 12 grossly intact Psych: calm, cooperative, normal affect Course Course Course Narrative: RME, this is a rapid medical exam performed by Evangelist Osborne please refer to primary provider for complete H&P- 39-year-old male past medical history significant for cerebral palsy, nonverbal presents for evaluation a wound to his posterior scalp. He was sent from urgent care. It appears to have an abscess where his head rest against his wheelchair headrest. Plan for labs including blood cultures. Medications Administered Discontinued Medications Generic Name Dose Route Start Last Admin Trade Name Freq PRN Reason Stop Dose Admin Cephalexin HCl 500 mg 11/22/24 16:52 11/22/24 17:37 Cephalexin 500 Mg Capsule PO 11/22/24 16:53 500 mg ONCE ONE Administration Doxycycline Monohydrate 100 mg 11/22/24 16:53 11/22/24 17:37 Doxycycline Monohydrate 100 Mg Capsule PO 11/22/24 16:54 100 mg ONCE ONE Administration Lidocaine HCl 10 ml 11/22/24 16:51 11/22/24 16:55 Lidocaine Hcl 1 % 20 Ml Vial INFILTRATI 11/22/24 16:52 10 ml ONCE ONE Administration Procedures Abscess I/D Site: scalp Local Anesthetic: lidocaine 1% Amount of anesthesia used (mL): 10 Technique: incised with blade Amount of fluid expressed (mL): 5 Irrigation: Yes Packing used?: iodoform Medical Decision Making Medical Decision Making [facility] Narrative: my interpretation of labs: Patient's white blood cell count 12.4. No significant abnormality in patient's chemistry. I discussed the physical exam with the patient's parents. Patient needs an I and D. Patient's parents agreed to the procedure. moderate amount of pus was drained. Packing was applied. Discussed with the patient's parents that in they need to return in 24-48 hours for packing removal and wound check. First dose of antibiotics, Keflex and doxycycline were given in the emergency room. Lab Data [facility] Lab Attestation statement: I reviewed the patient's lab results. 11/22/24 15:36 11/22/24 15:36 Labs: Lab Results 11/22/24 Range/Units 15:36 WBC 12.4 H (4.8-10.8) X10*3/uL RBC 4.52 L (4.60-5.80) X10*6/uL Hgb 12.9 L (14.0-18.0) g/dl Hct 37.9 L (42.0-52.0) % MCV 83.8 (80.0-98.0) fL MCH 28.5 (27.0-33.0) pg MCHC 34.0 (31.0-36.0) g/dl RDW 12.6 (11.0-16.0) % Plt Count 314 (160-400) X10*3/uL MPV 8.9 L (9.4-12.4) fL Immature Gran % (Auto) 0.4 (0.0-0.4) % Neut % (Auto) 73.1 H (45-73) % Lymph % (Auto) 16.8 L (20-40) % Grayson % (Auto) 6.7 (2-11) % Eos % (Auto) 2.6 (0-4) % Baso % (Auto) 0.4 (0-2) % Lymph # (Auto) 2.1 (1.2-4.9) X10*3/uL Grayson # (Auto) 0.8 (0.1-1.2) X10*3/uL Eos # (Auto) 0.3 (0.0-0.4) X10*3/uL Baso # (Auto) 0.1 (0.0-0.2) X10*3/uL Abs Immat Gran (auto) 0.05 H (0.00-0.03) X10*3/uL Absolute Neuts (auto) 9.0 H (2.0-8.3) x10*3/uL Absolute Nucleated RBC 0.000 (0.0-0.012) X10*3/uL Nucleated RBC % (auto) 0.0 (0.0-0.2) /100WBC Sodium 139 (135-145) mmol/L Potassium 3.9 (3.3-5.1) mmol/L Chloride 105 (96-108) mmol/L Carbon Dioxide 27 (22-29) mmol/L Anion Gap 11 L (12-20) BUN 12 (9-16) mg/dL Creatinine 0.52 (0.5-1.4) mg/dL Estim Creat Clear Calc 129.3 Estimated GFR > 60 Random Glucose 111 (60-115) mg/dL Lactic Acid 1.2 (0.5-2.0) mmol/L Calcium 9.0 D (8.4-10.2) mg/dL Total Bilirubin 0.3 (0.0-1.0) mg/dL AST 21 (5-37) U/L ALT 23 (0-40) U/L Alkaline Phosphatase 62 (39-117) U/L Total Protein 6.9 (6.5-8.0) g/dL Albumin 3.8 (3.5-5.0) g/dL Lipase 16 (8-78) U/L Discharge Plan Discharge Clinical Impression: Abscess of scalp Patient Disposition: Home, Self-Care Instructions: Abscess (ED), Abscess Incision and Drainage (DC) Additional Instructions: Please follow-up with your primary care physician tomorrow. You may return to the emergency room tomorrow, at the latest in couple of days for wound check and packing removal. If you have any worsening or new symptoms, please return to the emergency room or call 911 Prescriptions: New cephalexin 500 mg capsule 500 mg PO BID Qty: 14 0RF doxycycline hyclate 100 mg tablet 100 mg PO BID Qty: 14 0RF No Action ibuprofen 800 mg tablet 800 mg PO BID PRN (Reason: pain) 30 Days Qty: 60 1RF Rx Instructions: 1 tablet Orally Two times a day NEEDED with food for pains miscellaneous medical supply Misc miscellaneous .8x daily Rx Instructions: Adult Diapers- size: X-Large (DME) ADULT DIAPERS (XL) XL See Rx Instructions .Route .MEDSUPPLY Qty: 240 12RF Rx Instructions: As directed (DME) DISPOSABLE VINYL GLOVES (large) large See Rx Instructions .Route .MEDSUPPLY Qty: 4 11RF Rx Instructions: As directed (DME) DISPOSABLE WIPES See Rx Instructions .Route .MEDSUPPLY Qty: 400 12RF Rx Instructions: As directed (DME) UNDERPADS See Rx Instructions .Route .MEDSUPPLY Qty: 150 12RF Rx Instructions: As directed polyethylene glycol 3350 17 gram powder in packet 17 g PO DAILY 90 Days Qty: 100 3RF carbamazepine 200 mg tablet 200 mg PO BID quetiapine 25 mg tablet 25 mg PO BEDTIME ziprasidone HCl 80 mg capsule 80 mg PO BID cholecalciferol (vitamin D3) 50 mcg (2,000 unit) capsule 50 mcg PO DAILY 90 Days Qty: 90 3RF Print Language: [place]an
[2024-11-22 15:44] LABS: MANUAL DIFF FLAG NO
[2024-11-22 15:46] LABS: Basophils Absolute Auto 0.1 X10*3/uL (0.0-0.2); Basophils Percent Auto 0.4 % (0-2); Eosinophils Absolute Auto 0.3 X10*3/uL (0.0-0.4); Eosinophils Percent Auto 2.6 % (0-4); Hematocrit 37.9 % (42.0-52.0); Hemoglobin 12.9 g/dl (14.0-18.0); Imm Gran Abs Auto 0.05 X10*3/uL (0.00-0.03); Imm Gran Pct Auto 0.4 % (0.0-0.4); Lymphocytes Absolute Auto 2.1 X10*3/uL (1.2-4.9); Lymphocytes Percent Auto 16.8 % (20-40); Mean Corpuscular Hemoglobin 28.5 pg (27.0-33.0); Mean Corpuscular Volume 83.8 fL (80.0-98.0); Mean Platelet Volume 8.9 fL (9.4-12.4); Monocytes Absolute Auto 0.8 X10*3/uL (0.1-1.2); Monocytes Percent Auto 6.7 % (2-11); Neutrophils Percent Auto 73.1 % (45-73); Platelet Count 314 X10*3/uL (160-400); Red Blood Count 4.52 X10*6/uL (4.60-5.80); Red Cell Distribution Width 12.6 % (11.0-16.0); White Blood Count 12.4 X10*3/uL (4.8-10.8)
[2024-11-22 15:58] LABS: Alanine Aminotransferase 23 U/L (0-40); Albumin Level 3.8 g/dL (3.5-5.0); Alkaline Phosphatase 62 U/L (39-117); Anion Gap 11 (12-20); Aspartate Amino Transferase 21 U/L (5-37); Bilirubin Total 0.3 mg/dL (0.0-1.0); Blood Urea Nitrogen 12 mg/dL (9-16); Carbon Dioxide 27 mmol/L (22-29); Chloride 105 mmol/L (96-108); Creatinine Clr Calc Pharmacy 129.3; Estimated Glomerular Filt Rate > 60; Glucose Random 111 mg/dL (60-115); Lipase 16 U/L (8-78); Potassium 3.9 mmol/L (3.3-5.1); Sodium 139 mmol/L (135-145); Total Protein 6.9 g/dL (6.5-8.0)
[2024-11-22 15:59] LABS: Lactic Acid 1.2 mmol/L (0.5-2.0)
[2024-11-22] MEDS: Lidocaine HCl 1 % 20 ML VIAL 10 ML INFILTRATI (16:55)
--- NOTE | 2024-11-22 17:05 | PC.NURSE ---
Confirmed w/ provider Dr. Gannon 2nd set of BC not necessary.
[2024-11-22] MEDS: Doxycycline Monohydrate 100 MG CAPSULE PO (17:37)
[2024-11-22] MEDS: cephALEXin 500 MG CAPSULE PO (17:37)
[2024-11-22 17:53] VITALS: BP 00/00; PULSE 84; RESP 20; TEMP 36.9; O2SAT 96
== END 2024-11-22 17:55 | disposition home or self-care (01) ==
PROVIDERS: Physician Assistant; Emergency Provider Emergency Medicine; PCP Internal Medicine
DX: L02.811 Cutaneous abscess of head [any part, except face] (principal); G80.9 Cerebral palsy, unspecified; Z99.3 Dependence on wheelchair
CPT/HCPCS: 10060; 36415; 80053; 83605; 83690; 85025; 87040; 99283; 99284; J2003

== ENCOUNTER 2024-11-24 09:06 | Emergency (ER) | payer OTHER, SELFPAY ==
[2024-11-24 09:15] VITALS: BP 124/85; PULSE 75; RESP 18; TEMP 36.2; O2SAT 98; BMI 36.1
--- NOTE | 2024-11-24 10:21 | ED.WOUNDLAC ---
HPI - Wound/Laceration General Chief Complaint: Wound/Laceration Stated Complaint: wound check/packing removal Time Seen by Provider: 11/24/24 09:53 Source: patient, family and RN notes reviewed Mode of arrival: ambulatory Limitations: no limitations History of Present Illness ED Provider: Belen Obando PA-C HPI narrative: This is a 39-year-old male, with a history of cerebral palsy, who presents emergency department accompanied by his mother for packing removal. Mother reports that patient was seen 2 days ago for an abscess that was excised and drained. Patient has tolerated this well, no fevers. Mother states that he has been taking the antibiotics as directed. She did not change the dressing since the procedure 2 days ago. No concerns. No other complaints or concerns at this time. Location: scalp Associated symptoms: none Related Data Home Medications ?Medication ?Instructions ?Recorded ?Confirmed carbamazepine 200 mg tablet 200 mg PO BID 05/20/21 09/06/24 quetiapine 25 mg tablet 25 mg PO BEDTIME 05/20/21 09/06/24 ziprasidone HCl 80 mg capsule 80 mg PO BID 05/20/21 09/06/24 miscellaneous medical supply miscellaneous .8x daily 01/17/22 09/06/24 Previous Rx's ?Medication ?Instructions ?Recorded ibuprofen 800 mg tablet 800 mg PO BID PRN pain 30 days #60 10/29/21 tabs cholecalciferol (vitamin D3) 50 50 mcg PO DAILY 90 days #90 caps 03/02/24 mcg (2,000 unit) capsule ADULT DIAPERS (XL) #240 ea 07/07/24 DISPOSABLE VINYL GLOVES (large) #4 ea 07/07/24 DISPOSABLE WIPES #400 ea 07/07/24 UNDERPADS #150 ea 07/07/24 polyethylene glycol 3350 17 gram 17 g PO DAILY 90 days #100 ea 07/29/24 oral powder packet cephalexin 500 mg capsule 500 mg PO BID #14 caps 11/22/24 doxycycline hyclate 100 mg tablet 100 mg PO BID #14 tabs 11/22/24 Allergies Allergy/AdvReac Type Severity Reaction Status Date / Time No Known Allergies Allergy Verified 11/24/24 09:16 [No Known Allergies*] Review of Systems Review of Systems: Constitutional: No Weight loss, No Fever, No Chills, No Night Sweats, No Fatigue, No Malaise ENT/Mouth: No Hearing loss, No Ear Pain, No Nasal Congestion, No Sinus Pain, No Hoarseness, No sore throat, No Rhinorrhea, No Swallowing Difficulty Eyes: No Eye Pain, No Swelling, No Redness, No Foreign Body, No Discharge, No Vision Changes Cardiovascular: No Chest Pain, No SOB, No Dyspnea on Exertion, No Orthopnea, No Edema, No Palpitations Respiratory: No Cough, No Sputum, No Wheezing, No Smoke Exposure, No Dyspnea Gastrointestinal: No Nausea, No Vomiting, No Diarrhea, No Constipation, No Abdominal pain, No Hematochezia, No Melena Genitourinary: No irregular bleeding, No Dysuria, No Urinary Frequency, No Hematuria, No Urinary Incontinence/retention, No Urgency, No Flank Pain, No Urinary Flow Changes, No Hesitancy Musculoskeletal: No joint pain, No Myalgias, No Joint Swelling Skin: +Skin Lesions, No rash Neuro: No Weakness, No Numbness, No Paresthesias, No Loss of Consciousness, No Dizziness, No Headache Psych: No Anxiety/Panic, No Depression, No SI/HI/AH/VH, No Social Issues, Heme/Lymph: No Bruising, No Bleeding,No Lymphadenopathy Endocrine: No Polyuria, No Polydipsia, No Temperature Intolerance Yes all other systems are reviewed and are negative Constitutional: Constitutional: Reports as per [facility] Past Medical History Medical History Vitamin D deficiency Positive LIO (antinuclear antibody) Spina bifida Schizophrenia Bipolar disorder Constipation Gallstones without obstruction of gallbladder Allergic rhinitis Spastic quadriplegic cerebral palsy Surgical History No pertinent past surgical history Family History Family History Father High blood pressure Mother No problems noted. Social History Social History Housing: House Alcohol intake: never Patient Tobacco Use Status: Never used Tobacco Tobacco use type: Cigarette e-Cigarette/Vaping Use: Never Used Second Hand Smoke Exposure: No service: No Current occupational status: disabled Cognitive needs: Yes Hearing needs: No Vision needs: No Physical Exam Vital Signs: Vital Signs: Last Vital Signs Temp 97.1 F 11/24/24 09:15 Pulse 75 11/24/24 09:15 Resp 18 11/24/24 09:15 BP 124/85 11/24/24 09:15 Pulse Ox 98 11/24/24 09:15 O2 Del Method Room Air 11/24/24 09:15 BMI result Body Mass Index 36.1 Const: General: cooperative, comfortable and no acute distress Orientation/consciousness: patient oriented x3 Limitations: no limitations HEENT: Head: Yes normal to inspection, Yes normocephalic and Yes atraumatic Ears: hearing grossly normal bilaterally General nose exam: Normal external nose present Face and sinus: Yes normal facial exam Mouth: Normal oral and palatal mucosa present, oropharynx normal and moist mucous membranes Throat: Yes posterior oropharynx normal Eyes: General: appearance normal, both eyes and all related structures Eyelids: Yes eyelids normal Conjunctivae: conjunctivae normal Sclerae: sclerae normal Pupils: Equal, round and reactive pupils present EOM: EOMs intact bilaterally Neck: Neck: Yes normal visual inspection, Yes full ROM and Yes no lymphadenopathy Lymphatic: no lymphadenopathy noted Chest: Chest palpation & inspection: normal inspection of the chest Resp: Effort & Inspection: normal respiratory effort and able to speak in complete sentences Auscultation: clear to auscultation bilaterally, no crackles, no rales, no rhonchi and no wheezes Cardio: Rate: regular rate Rhythm: regular rhythm Skin: Other: Posterior head with approximately 3 cm surgical excision noted with mild purulence noted on dressing, no area of fluctuance or induration noted, nontender. No surrounding erythema or warmth. Neuro: General: patient oriented x3 and moves all extremities Cranial nerves: Yes Equal, round and reactive pupils present Extrem: General: Yes normal to inspection Right upper extremity: normal to inspection Left upper extremity: normal to inspection Right lower extremity: normal to inspection Left lower extremity: normal to inspection Medications Administered Discontinued Medications Generic Name Dose Route Start Last Admin Trade Name Freq PRN Reason Stop Dose Admin Bacitracin 1 appl 11/24/24 10:45 11/24/24 10:50 Bacitracin Oint 0.9 Gm Packet TOPICAL 11/24/24 10:46 1 appl ONCE ONE Administration Protocol Medical Decision Making Medical Decision Making MDM Narrative: This is a 39 no, with a past medical history of cerebral palsy, who presents emergency department for wound check and packing removal. Mother states that he tolerated this well without any complications or concerns. On arrival, vital signs within normal limits. Mother states that he was acting at his baseline. Dressing was removed, there is mild purulence noted on the dressing however no purulence expressed from the wound. No area of cellulitis, packing was removed. Wound was cleansed with saline, and dressed with bacitracin. Advised to continue taking the antibiotic as directed, given strict return precautions. Advised to follow-up with PCP in 3 days to ensure good wound healing. Mother understands and agrees with plan. Patient stable for discharge. Differential Diagnosis Differential Diagnoses: The differential diagnosis associated with the presentation includes Abscess, cellulitis, wound check, wound dehiscence Discharge Plan Discharge Clinical Impression: Open head wound Patient Disposition: Home, Self-Care Instructions: Wound Healing and Your Diet (ED), Acute Wounds (ED) Additional Instructions: You were evaluated today in the ED for a wound check on the back of the scalp. The wound was cleaned and dressing changed. The packing that was in the wound was removed. The wound has some drainage. Please change the dressing once per day. You can apply some Bacitracin antibiotic cream with a clean Q-tip to the area before applying a non-adherent pad and a gauze pad over it to absorb drainage. You can adhere the dressing by placing a sticky tegaderm patch over the gauze that will help to keep it in place. Please clean the wound with some warm clean water every day before performing bandage change. Please follow up with Dr. Black by Thursday (11/28) for evaluation and continuing care of the wound to ensure its improvement. If you notice any changes of the wound including increased drainage, foul smell, redness of the skin around the wound, fever, increased pain or any other concerns or symptoms please return to the Emergency Department for evaluation. Prescriptions: No Action ibuprofen 800 mg tablet 800 mg PO BID PRN (Reason: pain) 30 Days Qty: 60 1RF Rx Instructions: 1 tablet Orally Two times a day NEEDED with food for pains miscellaneous medical supply Misc miscellaneous .8x daily Rx Instructions: Adult Diapers- size: X-Large (DME) ADULT DIAPERS (XL) XL See Rx Instructions .Route .MEDSUPPLY Qty: 240 12RF Rx Instructions: As directed (DME) DISPOSABLE VINYL GLOVES (large) large See Rx Instructions .Route .MEDSUPPLY Qty: 4 11RF Rx Instructions: As directed (DME) DISPOSABLE WIPES See Rx Instructions .Route .MEDSUPPLY Qty: 400 12RF Rx Instructions: As directed (DME) UNDERPADS See Rx Instructions .Route .MEDSUPPLY Qty: 150 12RF Rx Instructions: As directed polyethylene glycol 3350 17 gram powder in packet 17 g PO DAILY 90 Days Qty: 100 3RF cephalexin 500 mg capsule 500 mg PO BID Qty: 14 0RF doxycycline hyclate 100 mg tablet 100 mg PO BID Qty: 14 0RF carbamazepine 200 mg tablet 200 mg PO BID quetiapine 25 mg tablet 25 mg PO BEDTIME ziprasidone HCl 80 mg capsule 80 mg PO BID cholecalciferol (vitamin D3) 50 mcg (2,000 unit) capsule 50 mcg PO DAILY 90 Days Qty: 90 3RF Print Language: [place]al[place]
[2024-11-24] MEDS: Bacitracin Oint 0.9 GM PACKET 1 APPL TOPICAL (10:50)
[2024-11-24 11:27] VITALS: BP 124/85; PULSE 75; RESP 18; TEMP 36.2; O2SAT 98
== END 2024-11-24 11:27 | disposition home or self-care (01) ==
PROVIDERS: Emergency Provider Emergency Medicine; PCP Internal Medicine
DX: S01.00XA Unspecified open wound of scalp, initial encounter (principal); X58.XXXA Exposure to other specified factors, initial encounter; Y93.9 Activity, unspecified; Y92.9 Unspecified place or not applicable; Y99.8 Other external cause status; Z79.899 Other long term (current) drug therapy; Z48.00 Encounter for change or removal of nonsurgical wound dressing
CPT/HCPCS: 99282

== ENCOUNTER 2024-11-28 13:14 | Outpatient (AMB) | payer OTHER, SELFPAY ==
[2024-11-28 13:33] VITALS: BP 116/60; PULSE 76; O2SAT 98
--- NOTE | 2024-11-28 13:33 | A.OFFPC_ITS ---
Vital Signs 11/28/24 13:33 Height 4 ft 6 in BMI Reason not done Patient refused/unable BP 116/60 Blood Pressure Location Lt brachial Position Sitting Pulse 76 Pulse Source Pulse Oximeter Pulse Oximetry (%) 98 Oxygen Delivery Method Room Air Intake Visit Reasons: [facility] 11/24 wound check Software Product Manager Required: No Accompanied by: Self / Same As Patient Allergies No Known Allergies [No Known Allergies*] Allergy (Verified 11/28/24 14:13) Medication List - Last Reconciled 11/28/24 by Scot Mosley MD [ADULT DIAPERS (XL) As directed] carbamazepine 200 mg PO BID cephalexin 500 mg PO BID cholecalciferol (vitamin D3) 50 mcg PO DAILY 90 days [DISPOSABLE VINYL GLOVES (large) As directed] [DISPOSABLE WIPES As directed] doxycycline hyclate 100 mg PO BID ibuprofen 800 mg PO BID PRN 30 days miscellaneous medical supply Adult Diapers- size: X-Large polyethylene glycol 3350 17 grams PO DAILY 90 days quetiapine 25 mg PO BEDTIME [UNDERPADS As directed] ziprasidone HCl 80 mg PO BID Tobacco use date assessed: 11/28/24 Dental Screening Dental Screen Date: 11/28/24 Did you have a dental visit in the last 12 months?: Yes Did you have a dental problem in the last 6 months where you did not have access to dental care?: No Was dental information given to patient?: Patient has dentist HPI [facility] 11/24 wound check HPI Details Patient comes [facility] - primarily to have the abscess on the back of his head evaluated He was brought to the ER last week for an enlarging parietooccipital scalp abscess I and D of the abscess was done at the ER and patient was also started on oral Abx (Cephalexin and Doxycycline) which he is currently still on He was brought back to the ER a couple of days later for a wound check - dressing was changed and they were advised that his wound appears to be healing well and to continue with daily wound care Patient comes in again today to have the wound on the back of his head reexamined His father states that patient has been doing well so far with no recent fever or headaches No other acute complaints or symptoms are noted [facility] Medical History Vitamin D deficiency Positive LIO (antinuclear antibody) Spina bifida Schizophrenia Bipolar disorder Constipation Gallstones without obstruction of gallbladder Allergic rhinitis Spastic quadriplegic cerebral palsy Surgical History No pertinent past surgical history Family History Father High blood pressure Mother No problems noted. Social History Housing: House Alcohol intake: never Patient Tobacco Use Status: Never used Tobacco Tobacco use type: Cigarette e-Cigarette/Vaping Use: Never Used Second Hand Smoke Exposure: No service: No Current occupational status: disabled Cognitive needs: Yes Hearing needs: No Vision needs: No Questionnaire PHQ-9 Over the last 2 weeks, how often have you been bothered by any of the following problems? 1. Little interest or pleasure in doing things: not at all 2. Feeling down, depressed, or hopeless: not at all 3. Trouble falling or staying asleep, or sleeping too much: not at all 4. Feeling tired or having little energy: nearly every day 5. Poor appetite or overeating: not at all 6. Feeling bad about yourself - or that you are a failure or have let yourself or your family down: not at all 7. Trouble concentrating on things, such as reading the newspaper or watching television: not at all 8. Moving or speaking so slowly that other people could have noticed. Or the opposite - being so fidgety or restless that you have been moving around a lot more than usual: not at all 9. Thoughts that you would be better off or of hurting yourself in some way: not at all Total score: 3 Depression Screening Interpretation: Negative Depression Screening Done: Yes 79551 - PHQ-9 Billing: Yes Source: Developed by Drs. Bienvenido Donald, Paris Figueredo, Mauro Valera and colleagues, with an educational pedro luis from [employer]. Thrive Questionnaire Date Thrive assessed: 11/28/24 I am a: Parent/Caregiver What is your living situation today?: I have a steady place to live Within the past 12 months, did the food you bought not last and you didn't have the money to get more?: I choose not to answer this question Within the past 12 months, did you worry whether your food would run out before you got money to buy more?: I choose not to answer this question Do you have trouble paying for medicines?: I choose not to answer this question Do you have trouble getting transportation to medical appointments?: I choose not to answer this question Do you have trouble paying your heating and electricity bill?: I choose not to answer this question Do you have trouble taking care of your child, family member or friend?: No Do you have trouble with day-to-day activities such as bathing, preparing meals, shopping, managing finances, etc.?: I choose not to answer this question Are you currently unemployed and looking for a job?: I choose not to answer this question Are you interested in more education?: I choose not to answer this question Please select the resources that you would like help with: None Currently or been in a relationship where the following occur: I choose not to answer THRIVE Score: 0 AUDIT C Alcohol Use Questionnaire (AUDIT-C) 1. How often do you have a drink containing alcohol?: Never 3. How often do you have six or more drinks on one occasion?: Never Total Score: 0 Score Reviewed/Action Taken: Yes JALEESA-7 AMB Questionnaire JALEESA-7 Date JALEESA - 7 assessed: 11/28/24 Feeling nervous, anxious, or on edge: 0 = Not at all Not being able to stop or control worryin = Not at all Worrying too much about different things: 0 = Not at all Trouble relaxin = Not at all Being so restless that it is hard to sit still: 0 = Not at all Becoming easily annoyed or irritable: 0 = Not at all Feeling afraid as if something awful might happen: 0 = Not at all Total JALEESA-7 score (0-4 normal; 5-9 mild; 10-14 moderate; 15-21 severe): 0 Source: Developed by Drs. Bienvenido Donald, Paris Figueredo, Mauro Valera and colleagues, with an educational pedro luis from [employer]. Review of Systems Const Details: ROS is limited and obtained primarily from patient's family as patient is not able to verbalize or communicate appropriately due to his physical incapacities Denies chills, Denies fever(s) and Denies headache(s) ENT Denies dysphagia, Denies dizziness, Denies headache(s) and Denies sore throat Card Denies chest pain, Denies irregular heart rhythm and Denies dyspnea Resp Denies chest congestion, Denies cough and Denies dyspnea GI Denies abdominal pain, Denies dysphagia, Denies diarrhea, Denies nausea and Denies vomiting Details: patient wears adult diapers Musc Denies back pain and Denies arthralgias Skin/Breast Details: (+) healing wound/abscess on the parieto-occipital scalp area Denies rash Neuro Denies dizziness and Denies headache(s) Physical exam (Primary Care) Vital Signs: Last Vital Signs Pulse 76 11/28/24 13:33 BP 116/60 11/28/24 13:33 Pulse Ox 98 11/28/24 13:33 Oxygen Delivery Method Room Air 11/28/24 13:33 Tobacco/Smoking Status: Tobacco use Status Tobacco use date assessed 11/28/24 11/28/24 13:40 Patient Tobacco Use Status Never used Tobacco 11/28/24 13:40 Tobacco use type Cigarette 11/28/24 13:40 e-Cigarette/Vaping Use Never Used 11/28/24 13:40 PHQ-9: PHQ-9 Score PHQ-9: Total score 3 11/28/24 14:22 Depression Screening Interpretation: Negative Thrive Assessment: Date of Thrive Assessment Date Thrive assessed 11/28/24 11/28/24 13:40 Currently or been in a relationship where the following occur: I choose not to answer Const Other: Physical exam is limited due to patient's wheelchair-bound status, physical disabilities and inability to cooperate with exam General: comfortable, no acute distress and alert Limitations: behavioral limitations, physical limitations and wheelchair HENMT Other: (+) healing wound on the parieto-occipital area, with minimal clear drainage Ears: TM's normal bilaterally and EAC's normal Throat: Yes posterior oropharynx normal Neck Neck: Yes no lymphadenopathy and Yes supple Resp Auscultation: clear to auscultation bilaterally, no rales and no wheezes Cardio Rate: regular rate Rhythm: regular rhythm Heart sounds: no murmurs GI Palpation (GI): Soft to palpation, nontender and no guarding Auscultation: normal bowel sounds Skin Rashes: no rashes Neuro Other: (+) spastic paraplegia; unable to perform neuro exam due to patient's condition but he does respond in a limited way to external stimuli Speech: Global aphasia present Motor exam (neuro): No no tremor noted Extrem Other: extremities are all contracted and atrophic due to his spastic cerebral palsy and quadriplegia General: Yes no pedal edema Psych Other: unable to assess Coding Level of Care Code Est Pt Level 3 (72847) Diagnoses Open wound of head with complication, initial encounter S01.90XA Encounter type: initial encounter Additional Codes PHQ-9 - 11495 - PHQ-9 Billing: Yes ([id number]) Assessment & Plan Assessment & Plan (1) Wound, open, head with complication: Code(s): S01.90XA - Unspecified open wound of unspecified part of head, initial encounter Category: Medical Qualifiers: Encounter type: initial encounter Qualified Code(s): S01.90XA - Unspecified open wound of unspecified part of head, initial encounter Plan: Patient had an abscess that started draining spontaneously about a week ago on 11/22/2024 He was initially brought to the walk-in clinic but was sent to the ER for further evaluation He ended up having I & D done at the ER and was started on dual Abx coverage with Doxycycline and Cephalexin He was brought back to the ER as instructed a couple of days later for a wound check and was advised to continue on his Abx as well as daily wound care Patient's father is reassured that the wound on his head appears to be healing well and to make sure patient completes his antibiotic Rx They have been instructed to continue daily wound care until the wound on his head heals up completely Plan Follow up as scheduled in February 2025
== END 2024-11-28 14:21 | disposition home or self-care (01) ==
LOC: HO.HMCH 13:14
PROVIDERS: PCP Internal Medicine; Visit Provider Internal Medicine
DX: S01.90XA Unspecified open wound of unspecified part of head, initial encounter (principal)

== ENCOUNTER → 2024-11-28 13:14 | Outpatient (BNVA) | payer OTHER, SELFPAY | PROVIDERS: PCP Internal Medicine; Visit Provider Internal Medicine | DX: S01.90XA Unspecified open wound of unspecified part of head, initial encounter (principal); X58.XXXA Exposure to other specified factors, initial encounter; Y93.9 Activity, unspecified; Y92.9 Unspecified place or not applicable; Y99.9 Unspecified external cause status | CPT/HCPCS: 96127; 99212 ==

== ENCOUNTER 2025-02-28 08:59 | Outpatient (REF) | payer OTHER, SELFPAY ==
[2025-02-28 09:10] LABS: MANUAL DIFF FLAG NO
--- OUTSIDE RECORDS SUMMARY | 2025-02-28 09:15 | XMS_ITS | Encounter Summary ---
Author Organization [facility] Address [address] [facility] [address] [place] [address] Phone Care Team Providers Care Tongue Carrier Name Role Phone Scot Mosley MD Primary Care Provider + [phone] Scot Mosley MD Primary Care Provider + [phone] Scot Mosley MD Unavailable [phone] Reason for Referral * Occupational Therapy (Routine) - Closed Specialty Diagnoses / Procedures Referred By Kenneth ferris Referred To Contact Occupational Therapy Diagnoses Encounter for rehabilitation cerebral palsy System, Provider Not In, [facility] [id number] [place] [address] Phone: tel: Referral ID Status Reason Start Date Expiration Date Visits Re quested Visits Authorized [id number] Closed 09/08/2017 09/08/2018 3 3 Encounter Details Date Type Department Care Team (Latest Contact Info) Description 09/03/2017 Transcribe Orders [facility] [address] [address] Scot Mosley MD [address] [place] [address] Dr Bishop [place] [phone] Encounter for rehabilitation (Primary Dx) Social History Tobacco Use Types Packs/Day Years Used Date Smoking Tobacco: Never Assessed Sex and Gender Information Value Date Recorded Sex Assigned at Not on file Legal Sex Male 9:17 PM EDT Gender Identity Not on file Sexual Orientation Not on file documented as of this encounter Plan of Treatment Not on file documented as of this encounter Procedures Procedure Name Priority Date/Time Associated Diagnosis Comments AMB REFERRAL TO [facility] OCCUPATIONAL THERAPY Routine 09/08/2017 3:18 PM EST Encounter for rehabilitation documented in this encounter Results * Ambulatory referral to [facility] Occupational Therapy (09/08/2017 3:18 PM EST) us Provider Not In System PhD AMB [facility] REFERRALS Fin al Result documented in this encounter Visit Diagnoses Diagnosis Encounter for rehabilitation- Primary documented in this encounter Care Teams Tongue Carrier Relationship Specialty Start Date End Date Scot Mosley MD [address] [place] [address] [place] [id number] PCP - General Internal Medicine 09/03/17 05/02/19 Scot Mosley MD [address] [place] [address] [place] [id number] PCP - General Internal Medicine 05/03/19 Scot Mosley MD [address] [place] [address] [place] [id number] Internal Medicine 05/03/19 documented as of this encounter Additional Source Comments The information contained in this document represents components of the legal health record. It is not the complete legal health record.[facility]
[2025-02-28 09:37] LABS: Hematocrit 43.8 % (42.0-52.0); Hemoglobin 14.7 g/dl (14.0-18.0); Imm Gran Abs Auto 0.01 X10*3/uL (0.00-0.03); Imm Gran Pct Auto 0.2 % (0.0-0.4); Lymphocytes Absolute Auto 1.7 X10*3/uL (1.2-4.9); Mean Corpuscular HGB Conc 33.6 g/dl (31.0-36.0); Mean Corpuscular Hemoglobin 27.9 pg (27.0-33.0); Mean Corpuscular Volume 83.1 fL (80.0-98.0); NRBC Abs Auto 0.000 X10*3/uL (0.0-0.012); NRBC Pct Auto 0.0 /100WBC (0.0-0.2); Platelet Count 233 X10*3/uL (160-400); Red Blood Count 5.27 X10*6/uL (4.60-5.80); White Blood Count 4.8 X10*3/uL (4.8-10.8)
[2025-02-28 10:08] LABS: Carbamazepine Tegretol 8.8 mcg/mL (5.0-12.0)
== END 2025-02-28 09:00 | disposition home or self-care (01) ==
LOC: HO.LAB 08:59
PROVIDERS: PCP Internal Medicine; Visit Provider General Practice
DX: Z79.899 Other long term (current) drug therapy (principal)
CPT/HCPCS: 36415; 80156; 85025

== ENCOUNTER 2025-03-04 08:02 | Outpatient (REF) | payer OTHER, SELFPAY ==
--- OUTSIDE RECORDS SUMMARY | 2025-03-04 08:04 | XMS_ITS | Encounter Summary ---
Author Organization [facility] Address [address] [place] [address] Phone Care Team Providers Care Process Improvement Consultant Name Role Phone Scot Mosley MD Primary Care Provider + [phone] Scot Mosley MD Primary Care Provider + [phone] Scot Mosley MD Unavailable [phone] Reason for Referral * Occupational Therapy (Routine) - Closed Specialty Diagnoses / Procedures Referred By Kenneth ferris Referred To Contact Occupational Therapy Diagnoses Encounter for rehabilitation cerebral palsy System, Provider Not In, [facility] [id number] [place] [address] Phone: tel: Referral ID Status Reason Start Date Expiration Date Visits Re quested Visits Authorized [id number] Closed 09/08/2017 09/08/2018 3 3 Encounter Details Date Type Department Care Team (Latest Contact Info) Description 09/03/2017 Transcribe Orders [facility] [address] [place] [address] Scot Mosley MD [address] [place] [address] Dr Bishop [place] [phone] Encounter for rehabilitation (Primary Dx) Social History [...] Date/Time Associated Diagnosis Comments AMB REFERRAL TO [facility] OCCUPATIONAL THERAPY Routine 09/08/2017 3:18 PM EST Encounter for rehabilitation documented in this encounter Results * Ambulatory referral to [facility] Occupational Therapy (09/08/2017 3:18 PM EST) us Provider Not In System PhD AMB [facility] REFERRALS Fin al Result documented in this encounter Visit Diagnoses Diagnosis Encounter for rehabilitation- Primary documented in this encounter Care Teams Process Improvement Consultant Relationship Specialty Start Date End Date Scot oMsley MD [address] [place] [address] [place] [id number] PCP - General Internal Medicine 09/03/17 05/02/19 Scot Mosley MD [address] [place] [address] [place] [id number] PCP - General Internal Medicine 05/03/19 Scot Mosley MD [address] [place] [address] [place] [id number] Internal Medicine 05/03/19 documented as of this encounter Additional Source Comments The information contained in this document represents components of the legal health record. It is not the complete legal health record.[facility]
[2025-03-04 08:23] LABS: MANUAL DIFF FLAG NO
[2025-03-04 08:38] LABS: Hematocrit 42.6 % (42.0-52.0); Hemoglobin 14.4 g/dl (14.0-18.0); Imm Gran Abs Auto 0.02 X10*3/uL (0.00-0.03); Imm Gran Pct Auto 0.3 % (0.0-0.4); Lymphocytes Absolute Auto 2.0 X10*3/uL (1.2-4.9); Mean Corpuscular HGB Conc 33.8 g/dl (31.0-36.0); Mean Corpuscular Hemoglobin 28.1 pg (27.0-33.0); Mean Corpuscular Volume 83.2 fL (80.0-98.0); NRBC Abs Auto 0.000 X10*3/uL (0.0-0.012); NRBC Pct Auto 0.0 /100WBC (0.0-0.2); Platelet Count 272 X10*3/uL (160-400); Red Blood Count 5.12 X10*6/uL (4.60-5.80); White Blood Count 6.5 X10*3/uL (4.8-10.8)
[2025-03-04 09:13] LABS: Hemoglobin A1C 126.8206 umol/L; Total Hemoglobin (HGBA1C) 3900.8240 umol/L
[2025-03-04 09:21] LABS: Alanine Aminotransferase 67 U/L (0-40); Albumin Level 4.4 g/dL (3.5-5.0); Alkaline Phosphatase 58 U/L (39-117); Anion Gap 12 (12-20); Aspartate Amino Transferase 35 U/L (5-37); Blood Urea Nitrogen 14 mg/dL (9-16); Calcium 9.0 mg/dL (8.4-10.2); Carbon Dioxide 29 mmol/L (22-29); Chloride 106 mmol/L (96-108); Cholesterol 170 mg/dL (<200); Estimated Glomerular Filt Rate > 60; HDL Cholesterol 48 mg/dL (>40); Potassium 4.7 mmol/L (3.3-5.1); Sodium 142 mmol/L (135-145); Total Protein 7.1 g/dL (6.5-8.0); Triglycerides 89 mg/dL (<150)
[2025-03-04 09:33] LABS: Folate 9.9 ng/mL (> or = 4.0); Vitamin B12 565 pg/mL (200-900)
== END 2025-03-04 08:03 | disposition home or self-care (01) ==
LOC: HO.LAB 08:02
PROVIDERS: PCP Internal Medicine; Visit Provider Internal Medicine
DX: Z00.00 Encounter for general adult medical examination without abnormal findings (principal); D64.9 Anemia, unspecified; E78.00 Pure hypercholesterolemia, unspecified; R73.9 Hyperglycemia, unspecified; E53.8 Deficiency of other specified B group vitamins; E55.9 Vitamin D deficiency, unspecified
CPT/HCPCS: 36415; 80053; 80061; 82306; 82607; 82746; 83036; 84443; 85025

== ENCOUNTER 2025-03-09 08:54 | Outpatient (AMB) | payer OTHER, SELFPAY ==
[2025-03-09 09:02] VITALS: BP 118/78; PULSE 101; O2SAT 94
--- NOTE | 2025-03-09 09:02 | A.OFFPC_ITS ---
Vital Signs 03/09/25 09:02 Height 4 ft 6 in BMI Reason not done Patient refused/unable BP 118/78 Blood Pressure Location Lt brachial Position Sitting Pulse 101 H Pulse Source Pulse Oximeter Pulse Oximetry (%) 94 Oxygen Delivery Method Room Air Intake Visit Reasons: 6mth f/u Swimming Pool Installer And Servicer Required: No Accompanied by: Self / Same As Patient Allergies No Known Allergies (No Known Allergies*) Allergy (Verified 03/09/25 09:21) Medication List - Last Reconciled 03/09/25 by Scot Mosley MD [ADULT DIAPERS (XL) As directed] carbamazepine 200 mg PO BID cephalexin 500 mg PO BID cholecalciferol (vitamin D3) 50 mcg PO DAILY 90 days [DISPOSABLE VINYL GLOVES (large) As directed] [DISPOSABLE WIPES As directed] doxycycline hyclate 100 mg PO BID ibuprofen 800 mg PO BID PRN 30 days miscellaneous medical supply Adult Diapers- size: X-Large polyethylene glycol 3350 17 grams PO DAILY 90 days quetiapine 25 mg PO BEDTIME [UNDERPADS As directed] ziprasidone HCl 80 mg PO BID Tobacco use date assessed: 03/09/25 Dental Screening Dental Screen Date: 03/09/25 Did you have a dental visit in the last 12 months?: Yes Did you have a dental problem in the last 6 months where you did not have access to dental care?: No Was dental information given to patient?: Patient has dentist HPI 6m f/u HPI Details Patient is brought in by family today for his follow up visit His mother states that they noticed another open sore/wound on the back of the patient's head (occipital scalp area) States that the wound is draining some yellow pus and the patient appears to be in pain as he has been moaning more than usual and keeps moving/shaking his head often His family states that he is otherwise doing okay and is currently eating and drinking well He's had no recent complaints of headaches, fever, chest pains or SOB No nausea/vomiting, no abdominal pain and no change in bowel habits noted He had his follow up labs done last week - to discuss his results [facility] Medical History Vitamin D deficiency Positive LIO (antinuclear antibody) Spina bifida Schizophrenia Bipolar disorder Constipation Gallstones without obstruction of gallbladder Allergic rhinitis Spastic quadriplegic cerebral palsy Surgical History No pertinent past surgical history Family History Father High blood pressure Mother No problems noted. Social History Housing: House Alcohol intake: never Patient Tobacco Use Status: Never used Tobacco Tobacco use type: Cigarette e-Cigarette/Vaping Use: Never Used Second Hand Smoke Exposure: No service: No Current occupational status: disabled Cognitive needs: Yes Hearing needs: No Vision needs: No Questionnaire PHQ-9 Over the last 2 weeks, how often have you been bothered by any of the following problems? 1. Little interest or pleasure in doing things: not at all 2. Feeling down, depressed, or hopeless: not at all 3. Trouble falling or staying asleep, or sleeping too much: not at all 4. Feeling tired or having little energy: nearly every day 5. Poor appetite or overeating: not at all 6. Feeling bad about yourself - or that you are a failure or have let yourself or your family down: not at all 7. Trouble concentrating on things, such as reading the newspaper or watching television: not at all 8. Moving or speaking so slowly that other people could have noticed. Or the opposite - being so fidgety or restless that you have been moving around a lot more than usual: not at all 9. Thoughts that you would be better off or of hurting yourself in some way: not at all Total score: 3 Depression Screening Interpretation: Negative Depression Screening Done: Yes 38674 - PHQ-9 Billing: Yes Source: Developed by Drs. Bienvenido Donald, Paris Figueredo, Mauro Valera and colleagues, with an educational pedro luis from [employer]. Thrive Questionnaire Date Thrive assessed: 03/09/25 I am a: Parent/Caregiver What is your living situation today?: I have a steady place to live Within the past 12 months, did the food you bought not last and you didn't have the money to get more?: I choose not to answer this question Within the past 12 months, did you worry whether your food would run out before you got money to buy more?: I choose not to answer this question Do you have trouble paying for medicines?: I choose not to answer this question Do you have trouble getting transportation to medical appointments?: I choose not to answer this question Do you have trouble paying your heating and electricity bill?: I choose not to answer this question Do you have trouble taking care of your child, family member or friend?: No Do you have trouble with day-to-day activities such as bathing, preparing meals, shopping, managing finances, etc.?: I choose not to answer this question Are you currently unemployed and looking for a job?: I choose not to answer this question Are you interested in more education?: I choose not to answer this question Please select the resources that you would like help with: None Currently or been in a relationship where the following occur: I choose not to answer THRIVE Score: 0 AUDIT C Alcohol Use Questionnaire (AUDIT-C) 1. How often do you have a drink containing alcohol?: Never 3. How often do you have six or more drinks on one occasion?: Never Total Score: 0 Score Reviewed/Action Taken: Yes JALEESA-7 AMB Questionnaire JALEESA-7 Date JALEESA - 7 assessed: 03/09/25 Feeling nervous, anxious, or on edge: 0 = Not at all Not being able to stop or control worryin = Not at all Worrying too much about different things: 0 = Not at all Trouble relaxin = Not at all Being so restless that it is hard to sit still: 0 = Not at all Becoming easily annoyed or irritable: 0 = Not at all Feeling afraid as if something awful might happen: 0 = Not at all Total JALEESA-7 score (0-4 normal; 5-9 mild; 10-14 moderate; 15-21 severe): 0 Source: Developed by Drs. Bienvenido Donald, Paris Figueredo, Mauro Valera and colleagues, with an educational pedro luis from [employer]. Review of Systems Const Details: ROS is limited and obtained primarily from patient's family as patient is not able to verbalize or communicate appropriately due to his physical incapacities Denies chills, Denies fever(s) and Denies headache(s) ENT Denies dysphagia, Denies dizziness, Denies headache(s) and Denies sore throat Card Denies chest pain, Denies irregular heart rhythm and Denies dyspnea Resp Denies chest congestion, Denies cough and Denies dyspnea GI Denies abdominal pain, Denies constipation, Denies dysphagia, Denies diarrhea, Denies nausea and Denies vomiting Details: patient wears adult diapers Denies hematuria and Reports urinary incontinence Musc Denies back pain and Denies arthralgias Skin/Breast Details: (+) open and draining sore/wound on the occipital scalp area Denies rash Neuro Denies dizziness and Denies headache(s) Physical exam (Primary Care) Vital Signs: Last Vital Signs Pulse 101 H 03/09/25 09:02 BP 118/78 03/09/25 09:02 Pulse Ox 94 03/09/25 09:02 Oxygen Delivery Method Room Air 03/09/25 09:02 Tobacco/Smoking Status: Tobacco use Status Tobacco use date assessed 03/09/25 03/09/25 09:10 Patient Tobacco Use Status Never used Tobacco 03/09/25 09:10 Tobacco use type Cigarette 03/09/25 09:10 e-Cigarette/Vaping Use Never Used 03/09/25 09:10 PHQ-9: PHQ-9 Score PHQ-9: Total score 3 03/09/25 09:10 Depression Screening Interpretation: Negative Thrive Assessment: Date of Thrive Assessment Date Thrive assessed 03/09/25 03/09/25 09:10 Currently or been in a relationship where the following occur: I choose not to answer Const Other: Physical exam is limited due to patient's wheelchair-bound status, physical disabilities and inability to cooperate with exam General: comfortable, no acute distress and alert Limitations: behavioral limitations, physical limitations and wheelchair HENMT Ears: TM's normal bilaterally and EAC's normal Throat: Yes posterior oropharynx normal and Yes tonsils normal Neck Neck: Yes supple and No lymphadenopathy Thyroid: Thyroid normal Resp Auscultation: clear to auscultation bilaterally, no rales and no wheezes Cardio Rate: regular rate Rhythm: regular rhythm Heart sounds: no murmurs GI Palpation (GI): Soft to palpation, nontender and no guarding Auscultation: normal bowel sounds Skin Other: (+) draining open sore on the occipital scalp Rashes: no rashes Neuro Other: (+) spastic paraplegia; unable to perform neuro exam due to patient's condition but he does respond in a limited way to external stimuli Speech: Global aphasia present Motor exam (neuro): No no tremor noted Extrem Other: extremities are all contracted and atrophic due to his spastic cerebral palsy and quadriplegia General: Yes no pedal edema Psych Other: unable to assess Results Reviewed Results Reviewed: Laboratory Tests 02/28/25 03/04/25 09:10 08:21 WBC 6.5 Hgb 14.4 Hct 42.6 Plt Count 272 Sodium 142 Potassium 4.7 D Creatinine 0.72 Estimated GFR > 60 Fasting Glucose 92 Hemoglobin A1c % 5.1 Calcium 9.0 AST 35 ALT 67 H Triglycerides 89 Cholesterol 170 LDL Cholesterol, Calc 105 H HDL Cholesterol 48 Vitamin B12 565 25-OH Vitamin D Total 40.2 TSH 1.45 Carbamazepine 8.8 Coding Level of Care Code Est Pt Level 4 (37144) Diagnoses Spastic quadriplegic cerebral palsy G80.0 Abscess or cellulitis of scalp L03.811 Allergic rhinitis, unspecified seasonality, unspecified trigger J30.9 Allergic rhinitis trigger: unspecified Allergic rhinitis seasonality: unspecified Calculus of gallbladder without cholecystitis without obstruction K80.20 Cholelithiasis location: gallbladder Cholecystitis presence: without cholecystitis Constipation, unspecified constipation type K59.00 Constipation type: unspecified constipation type Bipolar affective disorder, current episode mixed, current episode severity unspecified F31.60 Active/Remission status: currently active Current bipolar episode type: mixed Current episode severity: unspecified Schizophrenia, unspecified type F20.9 Schizophrenia type: unspecified Additional Codes PHQ-9 - 72933 - PHQ-9 Billing: Yes ([id number]) Assessment & Plan Assessment & Plan (1) Spastic quadriplegic cerebral palsy: Code(s): G80.0 - Spastic quadriplegic cerebral palsy Category: Medical Plan: Patient was getting PT/OT regularly in the past but this was interrupted by the COVID-19 pandemic a few years ago Family tries to perform some PT/OT on patient on their own and will get him back to resuming his regular PT/OT when it is appropriate or needed Continue Carbamazepine 200 mg BID Patient's old power chair is breaking down and they have requested for a referral fo occupation therapy evaluation at [facility] a few weeks ago but states that they have not heard back from them so far Will renew referral to [facility] Rehab for this issue (2) Abscess or cellulitis of scalp: Code(s): L03.811 - Cellulitis of head [any part, except face] Category: Medical Plan: Over the occipital scalp area Patient's mother states that he had a difficult time tolerating Doxycycline when it was prescribed for him a few months ago as it seems to be bothering his s tomach every time he took the medication Will start him for now on oral Bactrim DS 1 tablet BID with food x 7 days His family is instructed to continue with daily wound care and to also try to put his head up to allow the back of his scalp to be aired out every now and then to help minimize the recurrence of skin infections and cellulitis (3) Allergic rhinitis: Code(s): J30.9 - Allergic rhinitis, unspecified Category: Medical Qualifiers: Allergic rhinitis trigger: unspecified Allergic rhinitis seasonality: unspecified Qualified Code(s): J30.9 - Allergic rhinitis, unspecified Plan: Continue Loratadine 10 mg QD PRN and Fluticasone 50 mcg nasal spray QD PRN (4) Gallstones without obstruction of gallbladder: Code(s): K80.20 - Calculus of gallbladder without cholecystitis without obstruction Category: Medical Qualifiers: Cholelithiasis location: gallbladder Cholecystitis presence: without cholecystitis Qualified Code(s): K80.20 - Calculus of gallbladder without cholecystitis without obstruction Plan: This was incidentally noted when patient had abdominal x-rays done a couple of years ago Patient's family has been advised that no surgical interventions are required as long as patient is asymptomatic (5) Constipation: Code(s): K59.00 - Constipation, unspecified Category: Medical Qualifiers: Constipation type: unspecified constipation type Qualified Code(s): K59.00 - Constipation, unspecified Plan: Patient's family is again encouraged to help patient increase his oral fluids and dietary fiber intake Continue MiraLax 17 gm QD and OTC stool softeners as needed (6) Bipolar disorder: Code(s): F31.9 - Bipolar disorder, unspecified Category: Medical Qualifiers: Active/Remission status: currently active Current bipolar episode type: mixed Current episode severity: unspecified Qualified Code(s): F31.60 - Bipolar disorder, current episode mixed, unspecified Plan: Continue Quetiapine 25 mg QD (7) Schizophrenia: Code(s): F20.9 - Schizophrenia, unspecified Category: Medical Qualifiers: Schizophrenia type: unspecified Qualified Code(s): F20.9 - Schizophrenia, unspecified Plan: Continue Ziprasidone 80 mg BID Follow up with psychiatry as scheduled Plan Results of his labs done last week reviewed and discussed with patient's family - they were advised that his labs are all within acceptable levels/parameters To return in 6 months for his next annual physical examination Will have them help patient get his repeat labs again in 6 months just before he returns for his next annual PE Orders: Orders Complete Blood Count Auto Diff 6 Months D64.9 - Anemia, unspecified, Z00.00 - Encounter for general adult medical examination without abnormal findings Comprehensive [place]. Panel Fast 6 Months E78.00 - Pure hypercholesterolemia, unspecified, Z00.00 - Encounter for general adult medical examination without abnormal findings Lipid Panel 6 Months E78.00 - Pure hypercholesterolemia, unspecified, Z00.00 - Encounter for general adult medical examination without abnormal findings UA CC w/rflx Micro + Cult 6 Months R30.0 - Dysuria, Z00.00 - Encounter for general adult medical examination without abnormal findings TSH reflex Free T4 6 Months E78.00 - Pure hypercholesterolemia, unspecified, Z00.00 - Encounter for general adult medical examination without abnormal findings Vitamin D 25-OH Total 6 Months E55.9 - Vitamin D deficiency, unspecified, Z00.00 - Encounter for general adult medical examination without abnormal findings Referrals Physical Medicine and Rehabilitation Referral G80.0 - Spastic quadriplegic cerebral palsy, Z76.89 - Persons encountering health services in other specified circumstances Medications: New sulfamethoxazole-trimethoprim 800-160 mg (Bactrim DS) 1 tab PO BID 14 tabs 0RF 7 days
--- OUTSIDE RECORDS SUMMARY | 2025-03-09 09:17 | XMS_ITS | Encounter Summary ---
Author Organization [facility] Address [address] [place] [id number] Phone Care Team Providers Care Carpenter Foreman Name Role Phone Scot Mosley MD Primary Care Provider + [phone] Scot Mosley MD Primary Care Provider + [phone] Scot Mosley MD Unavailable [phone] Reason for Referral * Occupational Therapy (Routine) - Closed Specialty Diagnoses / Procedures Referred By Kenneth ferris Referred To Contact Occupational Therapy Diagnoses Encounter for rehabilitation cerebral palsy System, Provider Not In, [facility] [id number] [place] [id number] Phone: tel: Referral ID Status Reason Start Date Expiration Date Visits Re quested Visits Authorized [id number] Closed 09/08/2017 09/08/2018 3 3 Encounter Details Date Type Department Care Team (Latest Contact Info) Description 09/03/2017 Transcribe Orders [facility] [address] [id number] Scot Mosley MD [address] [place] [address] Dr Bishop [place] [phone] Encounter for rehabilitation (Primary Dx) Social History [...] Date/Time Associated Diagnosis Comments AMB REFERRAL TO [facility] OCCUPATIONAL THERAPY Routine 09/08/2017 3:18 PM EST Encounter for rehabilitation documented in this encounter Results * Ambulatory referral to [facility] Occupational Therapy (09/08/2017 3:18 PM EST) us Provider Not In System PhD AMB [facility] REFERRALS Fin al Result documented in this encounter Visit Diagnoses Diagnosis Encounter for rehabilitation- Primary documented in this encounter Care Teams Carpenter Foreman Relationship Specialty Start Date End Date Scot Mosely MD [address] [place] [address] [place] [id number] PCP - General Internal Medicine 09/03/17 05/02/19 Scot Mosley MD [address] [place] [address] [place] [id number] PCP - General Internal Medicine 05/03/19 Scot Mosley MD [address] [place] [address] [place] [id number] Internal Medicine 05/03/19 documented as of this encounter Additional Source Comments The information contained in this document represents components of the legal health record. It is not the complete legal health record.[facility]
== END 2025-03-09 09:40 | disposition home or self-care (01) ==
LOC: HO.HMCH 08:59
PROVIDERS: PCP Internal Medicine; Visit Provider Internal Medicine
DX: G80.0 Spastic quadriplegic cerebral palsy (principal); L03.811 Cellulitis of head [any part, except face]; J30.9 Allergic rhinitis, unspecified; K80.20 Calculus of gallbladder without cholecystitis without obstruction; K59.00 Constipation, unspecified; F31.60 Bipolar disorder, current episode mixed, unspecified; F20.9 Schizophrenia, unspecified

== ENCOUNTER → 2025-03-09 08:54 | Outpatient (BNVA) | payer OTHER, SELFPAY | PROVIDERS: PCP Internal Medicine; Visit Provider Internal Medicine | DX: G80.0 Spastic quadriplegic cerebral palsy (principal); L03.811 Cellulitis of head [any part, except face]; J30.9 Allergic rhinitis, unspecified; K80.20 Calculus of gallbladder without cholecystitis without obstruction; K59.00 Constipation, unspecified; F31.60 Bipolar disorder, current episode mixed, unspecified; F20.9 Schizophrenia, unspecified; D64.9 Anemia, unspecified; E78.00 Pure hypercholesterolemia, unspecified; R30.0 Dysuria; E55.9 Vitamin D deficiency, unspecified; Z76.89 Persons encountering health services in other specified circumstances | CPT/HCPCS: 96127; 99212 ==